=== PATIENT | female | born 1935 ===

== ENCOUNTER 2017-03-24 08:08 | Inpatient (IN) | payer OTHER ==
[2017-03-24 09:30] LABS: BASO % 0.5 % (0.0-2.0); EOS # 0.2 K/uL (0.0-0.7); EOS % 2.1 % (0.0-4.0); HEMATOCRIT 40.8 % (34.0-47.0); LYMPH # 2.5 K/uL (1.0-4.3); LYMPH % 27.8 % (20.0-40.0); MEAN CELL VOLUME 88.4 fl (81.0-99.0); MEAN CORPUSCULAR HEMOGLOBIN 30.5 pg (27.0-31.0); MEAN CORPUSCULAR HGB CONC 34.5 g/dL (33.0-37.0); MEAN PLATELET VOLUME 9.1 fl (7.2-11.7); MONO # 0.8 K/uL (0.0-0.8); MONO % 9.5 % (0.0-10.0); NEUT # 5.4 K/uL (1.8-7.0); NEUT % 60.1 % (50.0-75.0); NRBC % 0.1 % (0.0-0.0); RED CELL DISTRIBUTION WIDTH 14.5 % (11.5-14.5); WHITE BLOOD COUNT 8.9 K/uL (4.8-10.8)
[2017-03-24 09:40] LABS: ALB/GLOB RATIO 1.4 (1.0-2.1); ALKALINE PHOSPHATASE 91 U/L (38-126); ALT/SGPT 50 U/L (9-52); AST/SGOT 44 U/L (14-36); BILIRUBIN,TOTAL 0.9 mg/dl (0.2-1.3); BLOOD UREA NITROGEN 11 mg/dl (7-17); CALCIUM 9.5 mg/dL (8.4-10.2); CARBON DIOXIDE 24 mmol/L (22-30); CHLORIDE 101 mmol/L (98-107); GFR AFRICAN-AMERICAN > 60; GLUCOSE,RANDOM 104 mg/dL (65-105); POTASSIUM 3.3 MMOL/L (3.6-5.0); SODIUM 138 mmol/l (132-148); TOTAL PROTEIN 7.1 G/DL (6.3-8.2)
[2017-03-24] MEDS ORDERED: Potassium Chloride 20 mEq ER Tab PO ONE ×2 (09:46→11:46)
--- NOTE | 2017-03-24 10:03 | ED PDOC ---
Lower Extremity Pain/Injury Time Seen by Provider: 03/24/17 08:35 Chief Complaint (Nursing): Lower Extremity Problem/Injury Chief Complaint (Provider): Lower Extremity Problem/Injury History Per: Patient History/Exam Limitations: no limitations Onset/Duration Of Symptoms: Hrs Current Symptoms Are (Timing): Still Present Severity: Mild Additional Complaint(s): Patient is a 81 year old female who presents to ED from home for left lower back pain for 1 days. Patient also notes left buttock and left hip pain, hip pain is noted to radiates into her abdomen. Denies nausea, vomiting, diarrhea or fever. Pain is worse with lifting left leg, ambulatory at home with a cane. PMD: Dr. Mcghee Past Medical History Reviewed: Historical Data, Nursing Documentation, Vital Signs - Medical History PMH: Alzheimer's Disease, HTN, Hypercholesterolemia, Hyperlipidemia, Hypothyroidism, Osteoporosis - Surgical History Surgical History: No Surg Hx - Family History Family History: States: Unknown Family Hx - Living Arrangements Living Arrangements: With Family - Home Medications Home Medications: Ambulatory Orders Medication Instructions Recorded Donepezil [Aricept] 10 mg PO DAILY 03/24/17 Levothyroxine Sodium [Synthroid] 88 mcg PO DAILY 03/24/17 Pravastatin Sodium [Pravachol] 40 mg PO HS 03/24/17 Sucralfate [Carafate Tab] 1 gm PO TID 03/24/17 amLODIPine [Norvasc] 2.5 mg PO DAILY 03/24/17 - Allergies Allergies/Adverse Reactions: Allergies Allergy/AdvReac Type Severity Reaction Status Date / Time No Known Allergies Allergy Verified 12/05/16 23:05 Review of Systems ROS Statement: Except As Marked, All Systems Reviewed And Found Negative Constitutional: Negative for: Fever Respiratory: Negative for: Shortness of Breath Gastrointestinal: Positive for: Abdominal Pain. Negative for: Nausea, Vomiting Musculoskeletal: Positive for: Back Pain, Leg Pain Skin: Negative for: Rash Neurological: Positive for: Numbness Physical Exam - Reviewed Nursing Documentation Reviewed: Yes Vital Signs Reviewed: Yes - Physical Exam Appears: Positive for: Non-toxic, Uncomfortable Skin: Positive for: Normal Color, Warm Eye Exam: Positive for: Normal appearance Neck: Positive for: Normal, Painless ROM Cardiovascular/Chest: Positive for: Regular Rate, Rhythm. Negative for: Murmur Respiratory: Positive for: Normal Breath Sounds. Negative for: Respiratory Distress Gastrointestinal/Abdominal: Positive for: Soft, Tenderness (LLQ). Negative for : Distended, Guarding, Rebound Back: Positive for: Normal Inspection, Other (Left lower back, (+) trigger point tenderness ) Extremity: Positive for: Normal ROM. Negative for: Tenderness, Deformity Neurologic/Psych: Positive for: Alert, Oriented. Negative for: Motor/Sensory Deficits - Laboratory Results Result Diagrams: 03/24/17 09:23 03/24/17 09:23 Medical Decision Making Medical Decision Making: Time: 0900 Initial impression: Atraumatic Hip pain r/o arthritis, pathological fracture, sciatica. Abdominal pain r/o diverticulitis, abdominal CA Initial plan: -- CT-abdomen, lower extremity -- CMP -- CBC -- Toradol and Morpgine Time: 0945 Lab work reviewed: Potassium low Plan: -- Potassium Choloride 20 meq PO Time: 1155 CT-abdomen Impression: Mild pericholecystic inflammatory change/induration. No calcified gallstones. Consider correlation with abdominal ultrasound. Fatty infilitration of the liver. Small hiatral hernia. Sigmoid diverticulosis. CT-Lower extremities Impression: No acute fracutre. Osteoarthritis of left hip Scribe Attestation: Documented by Shanae Landon acting as a scribe for Willie Austin MD MD Scribe Attestation: All medical record entries made by the Scribe were at my direction and personally dictated by me. I have reviewed the chart and agree that the record accurately reflects my personal performance of the history, physical exam, medical decision making, and the department course for this patient. I have also personally directed, reviewed, and agree with the discharge instructions and disposition. Disposition - Clinical Impression Clinical Impression: Hip pain, left, Abdominal pain - Patient ED Disposition Is Patient to be Admitted: Yes Discussed With : Derrick Fuentes Doctor Will See Patient In The: Hospital Counseled Patient/Family Regarding: Studies Performed, Diagnosis - Disposition Disposition Time: 12:00 Condition: FAIR - Pt Status Changed To: Hospital Disposition Of: Inpatient - Admit Certification Admit to Inpatient:: After my assessment, the patient will require hospitalization for at least two midnights. This is because of the severity of symptoms shown, intensity of services needed, and/or the medical risk in this patient being treated as an outpatient. - POA Present On Arrival: None
--- NOTE | 2017-03-24 11:37 | CT ---
PROCEDURE: CT Abdomen and Pelvis without intravenous contrast HISTORY: abdominal pain COMPARISON: None. TECHNIQUE: Without contrast.. Contrast Dose: 0 Radiation dose: Total exam DLP = 859.55 mGy-cm. This CT exam was performed using one or more of the following dose reduction techniques: Automated exposure control, adjustment of the mA and/or kV according to patient size, and/or use of iterative reconstruction technique. FINDINGS: LOWER THORAX: Small hiatal hernia. No infiltrate. LIVER: Diffuse fatty infiltration. No mass. Smooth contour. No biliary dilatation. GALLBLADDER AND BILE DUCTS: No calcified gallstones. Questionable mild pericholecystic inflammatory change/induration. Consider correlation with abdominal/right upper quadrant ultrasound examination. No pericholecystic fluid. PANCREAS: Unremarkable. No gross lesion or ductal dilatation. SPLEEN: Unremarkable. ADRENALS: Unremarkable. No mass. KIDNEYS AND URETERS: Bilobed right lower pole pedunculated cyst, 3.9 x 2.5 cm. No interval change. Left upper pole cyst, 1.3 cm. No hydronephrosis. No calculus. VASCULATURE: Unremarkable. No aortic aneurysm. BOWEL: No bowel obstruction. 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 Seen on series 3, image 73 and is series 601, image 50. This measures approximately 1.5 cm in greatest dimension. Sigmoid diverticulosis without evidence of diverticulitis. Curvilinear calcifications seen along the wall of the gastric cardia, possibly calcified old suture material. Please correlate. APPENDIX: Unremarkable. Normal appendix. PERITONEUM: Unremarkable. No free fluid. No free air. LYMPH NODES: Unremarkable. No enlarged lymph nodes. BLADDER: Unremarkable. REPRODUCTIVE: Normal uterus BONES: Mild thoracolumbar levoscoliosis. Multilevel degenerative disc disease. No fracture. OTHER FINDINGS: None. IMPRESSION: Mild pericholecystic inflammatory change/induration. No calcified gallstones. Consider correlation with abdominal ultrasound. Fatty infiltration of the liver. Small hiatal hernia. Sigmoid diverticulosis. Additional minor findings as above.
--- NOTE | 2017-03-24 11:39 | CT ---
PROCEDURE: CT left hip HISTORY: left hip pain COMPARISON: Not available TECHNIQUE: 2.5 mm contiguous axial sections were acquired through the left hip. Sagittal and coronal images were reformatted from the axial scan. FINDINGS: There is no evidence of fracture. There is superior osteoarthritis of the left hip. The joint space is narrowed. There are subchondral cysts of the superior acetabulum. There are no articular erosions. The femoral head maintains its normal contour. There is no significant soft tissue abnormality seen about the hip. IMPRESSION: No acute fracture. Osteoarthritis of left hip.
[2017-03-24] MEDS: Pravastatin Sodium 40 MG TAB PO SCH (22:05)
[2017-03-24] MEDS ORDERED: Oxycodone/Acetaminophen 5/325 mg Tab PO PRN (22:12)
[2017-03-24] MEDS: Oxycodone/Acetaminophen 5/325 mg Tab PO PRN (22:20)
[2017-03-25] MEDS: Levothyroxine 88 MCG TAB PO SCH (05:57)
[2017-03-25] MEDS ORDERED: Levothyroxine 88 MCG TAB PO SCH (09:00)
[2017-03-25] MEDS: Enoxaparin 40 mg Syringe SC SCH (09:15)
[2017-03-25] MEDS: Oxycodone/Acetaminophen 5/325 mg Tab PO PRN (09:19)
--- NOTE | 2017-03-25 12:50 | CP.PCM.HP ---
<Mona Orourke - Last Filed: 03/26/17 12:32> History of Present Illness - History of Present Illness History of Present Illness: 81yo F with PMHx Alzheimer's Disease, HTN, Hypercholesterolemia, Hyperlipidemia , Hypothyroidism, Osteoporosis admitted for intractable left hip pain. Evaluated with attending. Left hip pain x2 days, no trauma/fall, radiation to abd. PMHx: as above FHx: NC SHx: Denies Allergies: NKDA Present on Admission - Present on Admission Any Indicators Present on Admission: No Review of Systems - Constitutional Constitutional: absent: Chills, Fever - Cardiovascular Cardiovascular: absent: Chest Pain - Respiratory Respiratory: absent: Dyspnea - Gastrointestinal Gastrointestinal: absent: Abdominal Pain, Diarrhea, Nausea, Vomiting - Genitourinary Genitourinary: absent: Dysuria, Hematuria - Musculoskeletal Musculoskeletal: Other (hip pain) - Neurological Neurological: absent: Headaches Past Patient History - Past Social History Smoking Status: Never Smoked - CARDIAC Hx Hypercholesterolemia: Yes Hx Hypertension: Yes - NEUROLOGICAL Hx Alzheimer's Disease: Yes - ENDOCRINE/METABOLIC Hx Hypothyroidism: Yes - MUSCULOSKELETAL/RHEUMATOLOGICAL Hx Falls: Yes Hx Osteoporosis: Yes - GASTROINTESTINAL Hx Constipation: Yes Hx Gastroesophageal Reflux: Yes Hx Ulcer: Yes - PSYCHIATRIC Hx Substance Use: No - SURGICAL HISTORY Hx Herniorrhaphy: Yes Other/Comment: Removal of stomach tumor - ANESTHESIA Hx Anesthesia: Yes Hx Anesthesia Reactions: No Hx Malignant Hyperthermia: No Has any member of the family had a problem w/ anesthesia?: No Meds Allergies/Adverse Reactions: Allergies Allergy/AdvReac Type Severity Reaction Status Date / Time No Known Allergies Allergy Verified 12/05/16 23:05 Physical Exam - Constitutional Appears: Non-toxic, No Acute Distress - Head Exam Head Exam: NORMAL INSPECTION - Eye Exam Eye Exam: Normal appearance - ENT Exam ENT Exam: Mucous Membranes Moist - Neck Exam Neck exam: Positive for: Normal Inspection - Respiratory Exam Respiratory Exam: Clear to Auscultation Bilateral - Cardiovascular Exam Cardiovascular Exam: Irregular Rhythm - GI/Abdominal Exam GI & Abdominal Exam: Normal Bowel Sounds, Soft - Extremities Exam Extremities exam: Positive for: normal inspection - Neurological Exam Neurological exam: Alert, CN II-XII Intact, Oriented x3 Additional comments: motor/sensation grossly intact TTP right hip neg log roll ROM limited d/t pain - Skin Skin Exam: Dry, Warm Results - Vital Signs Recent Vital Signs: Last Vital Signs Temp 98 F 03/25/17 08:08 Pulse 65 03/25/17 08:08 Resp 20 03/25/17 08:08 BP 112/67 03/25/17 09:15 Pulse Ox 94 L 03/25/17 08:08 - Labs Result Diagrams: 03/24/17 09:23 03/24/17 09:23 Labs: Laboratory Results - last 24 hr 03/25/17 03/25/17 08:30 08:30 ESR 28 TSH 3rd Generation 3.87 Assessment & Plan - Assessment and Plan (Free Text) Assessment: 81yo F with PMHx Alzheimer's Disease, HTN, Hypercholesterolemia, Hyperlipidemia , Hypothyroidism, Osteoporosis admitted for intractable left hip pain. left hip pain -CT abd/pelvis: fatty liver, sigmoid diverticulosis -CT left hip: no acute pathology, OA -ortho on board, appreciate input -XR b/l hip, pending final read -pain control -PT/OT Alzheimer's Disease -c/w home med HTN -c/w home med Hyperlipidemia -c/w home med Hypothyroidism -c/w home med DVT ppx -lovenox Decision To Admit - Pt Status Changed To: Hospital Disposition Of: Inpatient - Admit Certification Admit to Inpatient:: After my assessment, the patient will require hospitalization for at least two midnights. This is because of the severity of symptoms shown, intensity of services needed, and/or the medical risk in this patient being treated as an outpatient. - . Bed Request Type: Med/Surg Admitting Physician: Derrick Fuentes <Derrick Fuentes Last Filed: 03/27/17 15:56> Results - Vital Signs Recent Vital Signs: Last Vital Signs Temp 98 F 03/26/17 08:55 Pulse 76 03/26/17 08:55 Resp 20 03/26/17 08:55 BP 113/69 03/26/17 08:57 Pulse Ox 93 L 03/26/17 08:55 - Labs Result Diagrams: 03/24/17 09:23 03/26/17 14:56 Assessment & Plan - Assessment and Plan (Free Text) Assessment: Patient seen and examined with residents in rounds. Case, condition, investigative work up and plan discussed in detail. Agree with residents progress note. Plan: As ordered. (Derrick Fuentes MD)
--- NOTE | 2017-03-25 13:47 | CP.PCM.CON ---
History of Present Illness - History of Present Illness History of Present Illness: Orthopedic consult note Patient is a 81 year old female patient with PMHx of HTN, Hyperlipidemia, Hypothyroidism, dementia was seen at bedside this afternoon with attending Dr. Harris concerning pain to Left hip. Patient states that she has pain to lower back as well as Left hip which started a few days ago. Patient states that she had the back pain for a long time, more than a couple years. She denies of any trauma to the area, and is able to ambulate with cane. Patient deneis of any N/V /F/C or SOB today. Radiographic findings were discussed with the patient in detail and she was advised to follow up with Dr. Harris as an outpatient. Past Patient History - Past Social History Smoking Status: Never Smoked - CARDIAC Hx Hypercholesterolemia: Yes Hx Hypertension: Yes - NEUROLOGICAL Hx Alzheimer's Disease: Yes - ENDOCRINE/METABOLIC Hx Hypothyroidism: Yes - MUSCULOSKELETAL/RHEUMATOLOGICAL Hx Falls: Yes Hx Osteoporosis: Yes - GASTROINTESTINAL Hx Constipation: Yes Hx Gastroesophageal Reflux: Yes Hx Ulcer: Yes - PSYCHIATRIC Hx Substance Use: No - SURGICAL HISTORY Hx Herniorrhaphy: Yes Other/Comment: Removal of stomach tumor - ANESTHESIA Hx Anesthesia: Yes Hx Anesthesia Reactions: No Hx Malignant Hyperthermia: No Has any member of the family had a problem w/ anesthesia?: No Meds Allergies/Adverse Reactions: Allergies Allergy/AdvReac Type Severity Reaction Status Date / Time No Known Allergies Allergy Verified 12/05/16 23:05 - Medications Medications: Current Medications Amlodipine Besylate (Norvasc) 2.5 mg PO DAILY [facility] Last Admin: 03/25/17 09:15 Dose: 2.5 mg Donepezil HCl (Aricept) 10 mg PO DAILY [facility] Last Admin: 03/25/17 09:15 Dose: 10 mg Enoxaparin Sodium (Lovenox) 40 mg SC DAILY [facility] PRN Reason: Protocol Last Admin: 03/25/17 09:15 Dose: 40 mg Levothyroxine Sodium (Synthroid) 88 mcg PO DAILY@0600 [facility] Last Admin: 03/25/17 05:57 Dose: 88 mcg Oxycodone/Acetaminophen (Percocet 5/325 Mg Tab) 1 tab PO Q4 PRN PRN Reason: Pain, moderate (4-7) Stop: 03/27/17 22:12 Last Admin: 03/25/17 09:19 Dose: 1 tab Oxycodone/Acetaminophen (Percocet 5/325 Mg Tab) 2 tab PO Q4 PRN PRN Reason: Pain, severe (8-10) Stop: 03/27/17 22:13 Pravastatin Sodium (Pravachol) 40 mg PO HS [facility] Last Admin: 03/24/17 22:05 Dose: 40 mg Sucralfate (Carafate Tab) 1 gm PO TID [facility] Last Admin: 03/25/17 13:16 Dose: 1 gm Physical Exam - Constitutional Appears: Well, Non-toxic, No Acute Distress - Head Exam Head Exam: ATRAUMATIC - Extremities Exam Additional comments: Left hip exam reveals no open wound, no ecchymosis, no erythema, no drainage, no clinical signs of acute infection. Pain on palpation is noted to the lateral aspect of Left hip. Reduced ROM to left hip flexion noted secondary to guarding. - Neurological Exam Neurological exam: Alert, Oriented x3 - Psychiatric Exam Psychiatric exam: Normal Affect, Normal Mood - Skin Skin Exam: Normal Color, Warm Results - Vital Signs Recent Vital Signs: Last Vital Signs Temp 98 F 03/25/17 08:08 Pulse 65 03/25/17 08:08 Resp 20 03/25/17 08:08 BP 112/67 03/25/17 09:15 Pulse Ox 94 L 03/25/17 08:08 - Labs Result Diagrams: 03/24/17 09:23 03/24/17 09:23 Labs: Laboratory Results - last 24 hr 03/25/17 03/25/17 08:30 08:30 ESR 28 TSH 3rd Generation 3.87 Assessment & Plan - Assessment and Plan (Free Text) Assessment: 81 year old female patient presents with degenerative osteoarthritis to bilateral hip joints accompanied by pain Plan: Patient was seen, evaluated and treated with all questions and concerns addressed labs and vitals were reviewed Xrays were reviewed, discussed with the patient; No signs consistent with acute fracture is noted Patient can be full-weight bearing as tolerated with cane as per Dr. Harris Patient is to follow up with Dr. Harris as an out patient upon discharge
--- NOTE | 2017-03-25 15:08 | RAD ---
PROCEDURE: Abdomen HISTORY: Left hip pain. No antecedent history of trauma provided. COMPARISON: March 24, 2017. MRI.L. Hip TECHNIQUE: Standard protocol for this study/examination. FINDINGS: There are no osseous abnormalities to suggest fracture. The pelvic ring is intact. Preserved femoral-acetabular relationship. Negative study for protrusio, subluxation or dislocation. Degenerative changes: Bilaterally symmetric moderate degenerative change. IMPRESSION: No acute findings related to/accounting for the clinical presentation.
[2017-03-25] MEDS: Pravastatin Sodium 40 MG TAB PO SCH (22:25)
[2017-03-26 01:56] VITALS: BP 113/69; PULSE 76
[2017-03-26] MEDS: Levothyroxine 88 MCG TAB PO SCH (05:58)
[2017-03-26 08:56] VITALS: RESP 20; TEMP 98; O2SAT 93
[2017-03-26] MEDS: Enoxaparin 40 mg Syringe SC SCH (08:57)
--- NOTE | 2017-03-26 12:25 | CP.PCM.DIS ---
<Conor Orourkejackelyn - Last Filed: 03/27/17 08:35> Provider - Provider Date of Admission: 03/24/17 12:06 Attending physician: Derrick Fuentes MD Time Spent in preparation of Discharge (in minutes): 20 Hospital Course - Lab Results Lab Results: Most Recent Lab Values WBC 8.9 K/uL (4.8-10.8) 03/24/17 09: RBC 4.62 Mil/uL (3.80-5.20) 03/24/17 09: Hgb 14.1 g/dL (12.0-16.0) 03/24/17 09: Hct 40.8 % (34.0-47.0) 03/24/17: MCV 88.4 fl (81.0-99.0) 03/24/17: MCH 30.5 pg (27.0-31.0) 03/24/17: MCHC 34.5 g/dL (33.0-37.0) 03/24/17: RDW 14.5 % (11.5-14.5) 03/24/17 09: Plt Count 261 K/uL (130-400) 03/24/17 09: MPV 9.1 fl (7.2-11.7) 03/24/17 09: Neut % (Auto) 60.1 % (50.0-75.0) 03/24/17 09: Lymph % (Auto) 27.8 % (20.0-40.0) 03/24/17: Orange % (Auto) 9.5 % (0.0-10.0) 03/24/17 09: Eos % (Auto) 2.1 % (0.0-4.0) 03/24/17 09: Baso % (Auto) 0.5 % (0.0-2.0) 03/24/17: Neut # 5.4 K/uL (1.8-7.0) 03/24/17 09: Lymph # 2.5 K/uL (1.0-4.3) 03/24/17 09: Orange # 0.8 K/uL (0.0-0.8) 03/24/17 09:23 Eos # 0.2 K/uL (0.0-0.7) 03/24/17 09:23 Baso # 0.0 K/uL (0.0-0.2) 03/24/17 09:23 ESR 28 mm/hr (0-30) 03/25/17 08:30 Sodium 138 mmol/l (132-148) 03/24/17 09:23 Potassium 3.3 MMOL/L (3.6-5.0) L 03/24/17 09:23 Chloride 101 mmol/L (98-107) 03/24/17 09:23 Carbon Dioxide 24 mmol/L (22-30) 03/24/17 09:23 Anion Gap 16 (10-20) 03/24/17 09:23 BUN 11 mg/dl (7-17) 03/24/17 09:23 Creatinine 0.7 mg/dL (0.7-1.2) 03/24/17 09:23 Est GFR ( Amer) > 60 03/24/17 09:23 Est GFR (Non-Af Amer) > 60 03/24/17 09:23 Random Glucose 104 mg/dL (65-105) 03/24/17 09:23 Calcium 9.5 mg/dL (8.4-10.2) 03/24/17 09:23 Total Bilirubin 0.9 mg/dl (0.2-1.3) 03/24/17 09:23 AST 44 U/L (14-36) H 03/24/17 09:23 ALT 50 U/L (9-52) 03/24/17 09:23 Alkaline Phosphatase 91 U/L (38-126) 03/24/17 09:23 Total Protein 7.1 G/DL (6.3-8.2) 03/24/17 09:23 Albumin 4.2 g/dL (3.5-5.0) 03/24/17 09:23 Globulin 2.9 gm/dL (2.2-3.9) 03/24/17 09:23 Albumin/Globulin Ratio 1.4 (1.0-2.1) 03/24/17 09:23 TSH 3rd Generation 3.87 mIU/ML (0.46-4.68) 03/25/17 08:30 Rheum Arthritis Panel Negative (NEGATIVE) 03/25/17 08:30 - Hospital Course Hospital Course: 81yo F with PMHx Alzheimer's Disease, HTN, Hypercholesterolemia, Hyperlipidemia , Hypothyroidism, Osteoporosis admitted for intractable left hip pain. CT abd/ pelvis showed fatty liver and sigmoid diverticulosis. CT left hip showed no acute pathology and OA. XR b/l hip showed no fracture. C/s ortho Dr. Harris with recommendation for WBAT as no acute fx found and likely OA. Pt d/c to home as pt insurance didn't authorize [facility] for rehab. Discharge Exam - Head Exam Head Exam: ATRAUMATIC - Eye Exam Eye Exam: Normal appearance - ENT Exam ENT Exam: Mucous Membranes Moist - Neck Exam Neck exam: Normal Inspection - Respiratory Exam Respiratory Exam: NORMAL BREATHING PATTERN - Cardiovascular Exam Cardiovascular Exam: REGULAR RHYTHM - GI/Abdominal Exam GI & Abdominal Exam: Normal Bowel Sounds, Soft - Extremities Exam Extremities exam: normal inspection - Back Exam Back exam: NORMAL INSPECTION - Neurological Exam Neurological exam: Alert, Oriented x3 - Skin Skin Exam: Dry, Warm - Additional Findings Additional findings: TTP left hip, limited active ROM d/t pain Discharge Plan - Follow Up Plan Condition: FAIR Disposition: HOME/ ROUTINE Instructions: Oxycodone/Acetaminophen (By mouth) Additional Instructions: Follow up with primary medical doctor in 1 week. return to ER for uncontrolled pain. No strenous activity <Derrick Fuentes - Last Filed: 03/27/17 15:56> Provider - Provider Date of Admission: 03/24/17 12:06 Attending physician: Derrick Fuentes MD Hospital Course - Lab Results Lab Results: Most Recent Lab Values WBC 8.9 K/uL (4.8-10.8) 03/24/17 09:23 RBC 4.62 Mil/uL (3.80-5.20) 03/24/17 09:23 Hgb 14.1 g/dL (12.0-16.0) 03/24/17 09:23 Hct 40.8 % (34.0-47.0) 03/24/17 09:23 MCV 88.4 fl (81.0-99.0) 03/24/17 09:23 MCH 30.5 pg (27.0-31.0) 03/24/17 09:23 MCHC 34.5 g/dL (33.0-37.0) 03/24/17 09:23 RDW 14.5 % (11.5-14.5) 03/24/17 09:23 Plt Count 261 K/uL (130-400) 03/24/17 09:23 MPV 9.1 fl (7.2-11.7) 03/24/17 09:23 Neut % (Auto) 60.1 % (50.0-75.0) 03/24/17 09: Lymph % (Auto) 27.8 % (20.0-40.0) 03/24/17 09:23 Orange % (Auto) 9.5 % (0.0-10.0) 03/24/17 09: Eos % (Auto) 2.1 % (0.0-4.0) 03/24/17 09: Baso % (Auto) 0.5 % (0.0-2.0) 03/24/17 09: Neut # 5.4 K/uL (1.8-7.0) 03/24/17 09: Lymph # 2.5 K/uL (1.0-4.3) 03/24/17 09:23 Orange # 0.8 K/uL (0.0-0.8) 03/24/17 09: Eos # 0.2 K/uL (0.0-0.7) 03/24/17 09: Baso # 0.0 K/uL (0.0-0.2) 03/24/17 09: ESR 28 mm/hr (0-30) 03/25/17 08:30 Sodium 138 mmol/l (132-148) 03/24/17 09:23 Potassium 3.3 MMOL/L (3.6-5.0) L 03/26/17 14:56 Chloride 101 mmol/L (98-107) 03/24/17 09:23 Carbon Dioxide 24 mmol/L (22-30) 03/24/17 09:23 Anion Gap 16 (10-20) 03/24/17 09:23 BUN 11 mg/dl (7-17) 03/24/17 09:23 Creatinine 0.7 mg/dL (0.7-1.2) 03/24/17 09:23 Est GFR ( Amer) > 60 03/24/17 09:23 Est GFR (Non-Af Amer) > 60 03/24/17 09:23 Random Glucose 104 mg/dL (65-105) 03/24/17 09:23 Calcium 9.5 mg/dL (8.4-10.2) 03/24/17 09:23 Total Bilirubin 0.9 mg/dl (0.2-1.3) 03/24/17 09:23 AST 44 U/L (14-36) H 03/24/17 09:23 ALT 50 U/L (9-52) 03/24/17 09:23 Alkaline Phosphatase 91 U/L (38-126) 03/24/17 09:23 Total Protein 7.1 G/DL (6.3-8.2) 03/24/17 09:23 Albumin 4.2 g/dL (3.5-5.0) 03/24/17 09:23 Globulin 2.9 gm/dL (2.2-3.9) 03/24/17 09:23 Albumin/Globulin Ratio 1.4 (1.0-2.1) 03/24/17 09:23 TSH 3rd Generation 3.87 mIU/ML (0.46-4.68) 03/25/17 08:30 Rheum Arthritis Panel Negative (NEGATIVE) 03/25/17 08:30 ZENA Screen Negative (Negative) 03/25/17 08:30
== END 2017-03-26 16:17 | disposition home or self-care (01) | DRG 245 ==
LOC: H.ER 08:08 → H.ERHOLD 12:06 → H.MEDSURG1 14:43
PROVIDERS: ADMIT Internal Medicine; ATTEND Internal Medicine
DX: M16.0 Bilateral primary osteoarthritis of hip (principal); G30.9 Alzheimer's disease, unspecified; F02.80 Dementia in other diseases classified elsewhere, unspecified severity, without behavioral disturbance, psychotic disturbance, mood disturbance, and anxiety; I10 Essential (primary) hypertension; E03.9 Hypothyroidism, unspecified; E78.5 Hyperlipidemia, unspecified; E78.00 Pure hypercholesterolemia, unspecified; M81.0 Age-related osteoporosis without current pathological fracture

== ENCOUNTER 2017-07-20 22:16 | Emergency (ER) | payer OTHER ==
[2017-07-20 22:32] VITALS: BP 135/82; PULSE 83; RESP 16; O2SAT 100
[2017-07-20] MEDS ORDERED: Sodium Chloride 0.9% 500 ML IV STA (22:54)
[2017-07-20 23:06] VITALS: TEMP 98.7
[2017-07-20 23:32] LABS: VENOUS BLOOD GAS BASE EXCESS 3.2 mmol/L (0.0-2.0); VENOUS BLOOD GAS MODE ROOM AIR; VENOUS BLOOD GAS PCO2 45 mmHg (40-60); VENOUS BLOOD PH 7.41 (7.32-7.43)
[2017-07-20 23:39] LABS: BASO # 0.1 K/uL (0.0-0.2); BASO % 0.5 % (0.0-2.0); EOS # 0.2 K/uL (0.0-0.7); HEMATOCRIT 40.9 % (34.0-47.0); LYMPH # 1.5 K/uL (1.0-4.3); LYMPH % 12.7 % (20.0-40.0); MEAN CELL VOLUME 90.5 fl (81.0-99.0); MEAN CORPUSCULAR HGB CONC 33.1 g/dL (33.0-37.0); MEAN PLATELET VOLUME 8.8 fl (7.2-11.7); MONO # 0.3 K/uL (0.0-0.8); MONO % 2.5 % (0.0-10.0); NEUT # 9.6 K/uL (1.8-7.0); NEUT % 82.3 % (50.0-75.0); RED CELL DISTRIBUTION WIDTH 13.9 % (11.5-14.5); WHITE BLOOD COUNT 11.6 K/uL (4.8-10.8)
--- NOTE | 2017-07-20 23:47 | ED PDOC ---
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 (+) head pain, bilateral arm pain, bilateral leg pain, subjective fever, chills, and frequency/dysuria x2 weeks. (-) nausea, vomiting, diarrhea, upper respiratory symptoms. Patient states that she had felt fine all day up until x1 hour ago. PCP: Onofre jackson [place] Past Medical History Reviewed: Historical Data, Nursing Documentation, Vital Signs Vital Signs: Last Vital Signs Temp 98.7 F 07/20/17 23:06 Pulse 83 07/20/17 22:29 Resp 16 07/20/17 22:29 BP 135/82 07/20/17 22:29 Pulse Ox 100 07/21/17 06:01 - Medical History PMH: Alzheimer's Disease, HTN, Hypercholesterolemia, Hyperlipidemia, Hypothyroidism, Osteoporosis - Surgical History Surgical History: Hernia Repair Other surgeries: fatty tumor removal - Family History Family History: States: No Known Family Hx - Social History Current smoker - smoking cessation education provided: No Ex-Smoker (has not smoked in the last 12 months): No Alcohol: None Drugs: Denies - Home Medications Home Medications: Ambulatory Orders Medication Instructions Recorded Donepezil [Aricept] 10 mg PO HS tab 07/24/17 Enoxaparin [Lovenox] 40 mg SC DAILY syr 07/24/17 Levothyroxine [Synthroid] 88 mcg PO DAILY@0630 tab 07/24/17 Pravastatin Sodium [Pravachol] 40 mg PO HS tab 07/24/17 Sucralfate [Carafate Tab] 1 gm PO TID tab 07/24/17 amLODIPine [Norvasc] 2.5 mg PO DAILY tab 07/24/17 cefTRIAXone [Rocephin] 2 gm IV DAILY #7 vial 07/24/17 - Allergies Allergies/Adverse Reactions: Allergies Allergy/AdvReac Type Severity Reaction Status Date / Time No Known Allergies Allergy Verified 09/09/17 14:36 Review of Systems ROS Statement: Except As Marked, All Systems Reviewed And Found Negative Constitutional: Positive for: Fever (subjective), Chills Respiratory: Negative for: Cough, Shortness of Breath Gastrointestinal: Negative for: Nausea, Vomiting, Diarrhea Genitourinary Female: Positive for: Dysuria, Frequency Musculoskeletal: Positive for: Arm Pain (bilateral), Back Pain, Leg Pain ( bilateral), Other ((+) head pain) Physical Exam - Reviewed Nursing Documentation Reviewed: Yes Vital Signs Reviewed: Yes - Physical Exam Appears: Positive for: Uncomfortable, In Acute Distress Head Exam: Positive for: ATRAUMATIC, NORMOCEPHALIC Skin: Positive for: Warm, Dry Eye Exam: Positive for: EOMI, PERRL ENT: Negative for: Pharyngeal Erythema, Tonsillar Exudate Neck: Positive for: Painless ROM, Supple Cardiovascular/Chest: Positive for: Regular Rate, Rhythm, Chest Non Tender. Negative for: Murmur Respiratory: Positive for: Normal Breath Sounds. Negative for: Wheezing, Respiratory Distress Gastrointestinal/Abdominal: Positive for: Soft, Tenderness (suprapubic). Negative for: Mass, Distended, Guarding, Rebound Back: Positive for: L CVA Tenderness, R CVA Tenderness, Vertebral Tenderness Extremity: Positive for: Normal ROM, Tenderness, Other (trace bilateral leg) Lymphatic: Negative for: Adenopathy Neurologic/Psych: Positive for: Alert, Motor/Sensory Deficits, Mood/Affect ( anxious affect) - Laboratory Results Result Diagrams: 07/20/17 23:36 07/20/17 23:36 - ECG O2 Sat by Pulse Oximetry: 100 (RA) Pulse Ox Interpretation: Normal Medical Decision Making Medical Decision Makin Initial impression: body aches DDx: viral syndrome, UTI, dehydration, sepsis, electrolyte abnormality, PNA Initial plan: * T&S * VBG Shock * EKG * Labs * Magnesium * Phosphorus * Trop I * PTT/PT * CXR * NS IV * Toradol 15mg IV * Acetaminophen 975mg PO * BCx * UCx * Rapid strep * UA * Re-eval On reeval pt reports persistent back pain. Urine c/w UTI. CT abd/pel ordered for pyelo v renal stone. Scribe Attestation: Documented by Serena Varela acting as a scribe for Suzi Goldberg MD. MD Scribe Attestation: All medical record entries made by the Violeta were at my direction and personally dictated by me. I have reviewed the chart and agree that the record accurately reflects my personal performance of the history, physical exam, medical decision making, and the department course for this patient. I have also personally directed, reviewed, and agree with the discharge instructions and disposition. Disposition - Clinical Impression Clinical Impression: UTI (urinary tract infection) - Disposition Disposition: Transfer of Care Disposition Time: 00:00 Condition: STABLE Additional Instructions: follow up with your primary doctor in 1-2 days return to the ED with any worsening or concerning symptoms Patient Signed Over To: Juan Kim Y Handoff Comments: Pending ER workup, reassesment and final ER dispo
[2017-07-20 23:48] LABS: ALB/GLOB RATIO 1.3 (1.0-2.1); ALKALINE PHOSPHATASE 100 U/L (38-126); ALT/SGPT 58 U/L (9-52); AST/SGOT 58 U/L (14-36); BILIRUBIN,TOTAL 0.5 mg/dl (0.2-1.3); BLOOD UREA NITROGEN 17 mg/dl (7-17); CALCIUM 9.4 mg/dL (8.4-10.2); CARBON DIOXIDE 26 mmol/L (22-30); CHLORIDE 102 mmol/L (98-107); GFR AFRICAN-AMERICAN > 60; GLUCOSE,RANDOM 95 mg/dL (65-105); MAGNESIUM 2.2 MG/DL (1.6-2.3); POTASSIUM 3.5 MMOL/L (3.6-5.0); SODIUM 137 mmol/l (132-148); TOTAL PROTEIN 7.1 G/DL (6.3-8.2)
[2017-07-20 23:54] LABS: PARTIAL THROMBOPLASTIN TIME 30.9 Seconds (25.6-37.1)
[2017-07-20] MEDS ORDERED: Potassium Chloride 20 mEq ER Tab PO STA (23:57)
--- NOTE | 2017-07-21 00:10 | ED PDOC ---
- Laboratory Results Result Diagrams: 07/20/17 23:36 07/20/17 23:36 - ECG O2 Sat by Pulse Oximetry: 100 (RA) Medical Decision Making Medical Decision Makin Patient signed out to me from Dr. Goldberg CT and work up. 0030 CT FINDINGS Lower thorax: The bilateral lung bases are clear. ABDOMEN: Liver: No acute findings Gallbladder and bile ducts: The gallbladder is only minimally distended, without calcified stones. No intra-extrahepatic biliary ductal dilation. Pancreas: Limited evaluation secondary to the lack of intravenous contrast. Spleen: No acute findings. Adrenals: No acute findings. Kidneys and ureters: No obstructing stones. Mild bilateral pelvicaliectasis, without briana hydronephrosis. PELVIS: Bladder: No acute findings. Reproductive: No acute findings. Appendix: The appendix is of normal-caliber (series 3, image 103). ABDOMEN and PELVIS: Stomach and bowel: Duodenal lipoma again identified. Postoperative change in the stomach. Mural thickening within the sigmoid colon, with multiple diverticulum. No surrounding inflammation. Peritoneum: No acute findings. Lymph nodes: Limited evaluation without intravenous contrast. Vasculature: No aortic aneurysm. Calcified atherosclerotic disease. Bones: No acute fracture. 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 IMPRESSION: No obstructive uropathy. Multiple nonacute findings, as detailed above 0055 Upon re-evaluation, patient is feeling better. Patient is medically stable for discharge home. Instructions to follow up with findings form CT. advised pt and family to get results from medical records pt feels well, tolerated po Dx: UTI rx macrobid Scribe Attestation: Documented by Serena Varela acting as a scribe for Juan Kim MD. Scribe Attestation: All medical record entries made by the Scribe were at my direction and personally dictated by me. I have reviewed the chart and agree that the record accurately reflects my personal performance of the history, physical exam, medical decision making, and the department course for this patient. I have also personally directed, reviewed, and agree with the discharge instructions and disposition. Disposition Counseled Patient/Family Regarding: Studies Performed, Diagnosis, Need For Followup - Clinical Impression Clinical Impression: UTI (urinary tract infection) - POA Present On Arrival: None - Disposition Referrals: [facility] [Outside] [facility] [Outside] Disposition: Routine/Home Disposition Time: 00:30 Condition: IMPROVED Additional Instructions: follow up with your primary doctor in 1-2 days return to the ED with any worsening or concerning symptoms Prescriptions: Nitrofurantoin Macrocrystals [Macrobid] 100 mg PO BID #14 cap Instructions: Urinary Tract Infection in Women (ED) Forms: [employer] (Italian)
[2017-07-21 00:24] LABS: RBC URINE 9 /hpf (0-3); URINE BACTERIA RARE (<OCC); URINE BILIRUBIN NEGATIVE (NEGATIVE); URINE BLOOD SMALL (NEGATIVE); URINE COLOR YELLOW (YELLOW); URINE GLUCOSE (UA) NEG (Normal); URINE KETONE NEGATIVE (NEGATIVE); URINE LEUKOCYTE ESTERASE LARGE Leu/uL (Negative); URINE PROTEIN NEGATIVE (NEGATIVE); URINE UROBILINOGEN 0.2-1.0 mg/dL (0.2-1.0); WBC URINE 89 /hpf (0-5)
--- NOTE | 2017-07-21 00:30 | CT ---
EXAM: CT Abdomen and Pelvis Without Intravenous Contrast CLINICAL HISTORY: 82 years old, female; Pain; Abdominal pain; Flank; Other: Bilateral pain; Additional info: Bilateral flank pain TECHNIQUE: Axial computed tomography images of the abdomen and pelvis without intravenous contrast. All CT scans at this facility use one or more dose reduction techniques, viz.: automated exposure control; ma/kV adjustment per patient size (including targeted exams where dose is matched to indication; i.e. head); or iterative reconstruction technique. Coronal and sagittal reformatted images were created and reviewed. COMPARISON: CT - ABD PELVIS W/O PO OR IV CONT 03/24/2017 10:57:45 AM FINDINGS: Lower thorax: The bilateral lung bases are clear. ABDOMEN: Liver: No acute findings Gallbladder and bile ducts: The gallbladder is only minimally distended, without calcified stones. No intra-extrahepatic biliary ductal dilation. Pancreas: Limited evaluation secondary to the lack of intravenous contrast. Spleen: No acute findings. Adrenals: No acute findings. Kidneys and ureters: No obstructing stones. Mild bilateral pelvicaliectasis, without briana hydronephrosis. PELVIS: Bladder: No acute findings. Reproductive: No acute findings. Appendix: The appendix is of normal-caliber (series 3, image 103). ABDOMEN and PELVIS: Stomach and bowel: Duodenal lipoma again identified. Postoperative change in the stomach. Mural thickening within the sigmoid colon, with multiple diverticulum. No surrounding inflammation. Peritoneum: No acute findings. Lymph nodes: Limited evaluation without intravenous contrast. Vasculature: No aortic aneurysm. Calcified atherosclerotic disease. Bones: No acute fracture. 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 IMPRESSION: No obstructive uropathy. Multiple nonacute findings, as detailed above.
[2017-07-21] MEDS ORDERED: Potassium Chloride 20 mEq ER Tab PO ONE ×2 (00:41→00:53)
[2017-07-21] MEDS ORDERED: cefTRIAXone (Rocephin) 1 gm Inj ONE (00:42)
--- NOTE | 2017-07-21 07:48 | RAD ---
HISTORY: cp fever COMPARISON: Chest radiographs 11/01/2013. FINDINGS: LUNGS: No active pulmonary disease. PLEURA: No significant pleural effusion identified, no pneumothorax apparent. CARDIOVASCULAR: Normal. OSSEOUS STRUCTURES: No significant abnormalities. VISUALIZED UPPER ABDOMEN: Normal. OTHER FINDINGS: None. IMPRESSION: No acute infiltrates or pleural effusion. Examination appears stable in the interval.
--- NOTE | 2017-07-24 18:36 | CARD ---
APPROVED REPORT EKG Measurement Heart [id number] [place] [id number] <Conclusion> Normal sinus rhythm Left anterior fascicular block Abnormal ECG
== END 2017-07-21 02:28 | disposition home or self-care (01) ==
LOC: H.ER 22:16
DX: N39.0 Urinary tract infection, site not specified (principal); E78.00 Pure hypercholesterolemia, unspecified
CPT/HCPCS: 71010; 74176; 80053; 81003; 82803; 83735; 83880; 84100; 84484; 85025; 85610; 85730; 86850; 86900; 87040; 87070; 87086; 87181; 87430; 93005; 96365; 96375; 99284; J0696; J1885; J7040

== ENCOUNTER 2017-07-21 22:57 | Inpatient (IN) | payer OTHER ==
[2017-07-21] MEDS ORDERED: cefTRIAXone (Rocephin) 2 gm Inj IVPB STA (23:07)
--- NOTE | 2017-07-21 23:29 | ED PDOC ---
HPI: General Adult Time Seen by Provider: 07/21/17 23:15 Chief Complaint (Nursing): Fever Chief Complaint (Provider): FEVER History Per: Patient (82 Y/O FEMALE HERE WITH PERSISTENT FEVER/CHILLS/DYSURIA. SEEN YESTERDAY FOR THE SAME AND DIAGNOSED WITH UTI. HAD CT ABD/PELVIS NEGATIVE. D/C ON MACROBID. PATIENT WAS NOTED TO HAVE BLOOD CULTURE POSITIVE FOR GRAM NEG ORGANISM. NOTES FEVERS PERSISTENT TODAY. LAST TOOK TYLENOL AT 4PM ) Past Medical History Reviewed: Historical Data, Nursing Documentation, Vital Signs Vital Signs: Last Vital Signs Temp 100.5 F H 07/21/17 23:03 Pulse 101 H 07/21/17 23:03 Resp 18 07/21/17 23:03 BP 125/65 07/21/17 23:03 Pulse Ox 97 07/21/17 23:59 - Medical History PMH: Alzheimer's Disease, HTN, Hypercholesterolemia, Hyperlipidemia, Hypothyroidism, Osteoporosis - Surgical History Surgical History: Hernia Repair Other surgeries: SX FOR BLADDER TUMOR REMOVAL - Family History Family History: States: Unknown Family Hx - Home Medications Home Medications: Ambulatory Orders Medication Instructions Recorded Donepezil [Aricept] 10 mg PO DAILY 03/24/17 Levothyroxine Sodium [Synthroid] 88 mcg PO DAILY 03/24/17 Pravastatin Sodium [Pravachol] 40 mg PO HS 03/24/17 Sucralfate [Carafate Tab] 1 gm PO TID 03/24/17 amLODIPine [Norvasc] 2.5 mg PO DAILY 03/24/17 Nitrofurantoin Macrocrystals 100 mg PO BID #14 cap 07/21/17 [Macrobid] - Allergies Allergies/Adverse Reactions: Allergies Allergy/AdvReac Type Severity Reaction Status Date / Time No Known Allergies Allergy Verified 12/05/16 23:05 Review of Systems ROS Statement: Except As Marked, All Systems Reviewed And Found Negative Constitutional: Positive for: Fever Genitourinary Female: Positive for: Dysuria Physical Exam - Reviewed Nursing Documentation Reviewed: Yes Vital Signs Reviewed: Yes - Physical Exam Appears: Positive for: Well, Non-toxic, No Acute Distress Head Exam: Positive for: ATRAUMATIC, NORMAL INSPECTION, NORMOCEPHALIC Skin: Positive for: Normal Color, Warm, DRY Eye Exam: Positive for: EOMI, Normal appearance, PERRL ENT: Positive for: Normal ENT Inspection Neck: Positive for: Normal, Painless ROM Cardiovascular/Chest: Positive for: Regular Rate, Rhythm Respiratory: Positive for: CNT, Normal Breath Sounds Gastrointestinal/Abdominal: Positive for: Normal Exam, Bowel Sounds, Soft, Tenderness (RUQ TENDERNESS) Back: Positive for: Normal Inspection Extremity: Positive for: Normal ROM Neurologic/Psych: Positive for: Alert, Oriented - Laboratory Results Result Diagrams: 07/21/17 23:43 07/21/17 23:43 - ECG ECG Rhythm: Positive for: Sinus Rhythm (nsr 93bpm; no ectopy no acute changes) O2 Sat by Pulse Oximetry: 97 - Progress ED Course And Treament: PER FAMILY, PATIENT HAS H/O GASTRITIS AND ONGOING ABDOMINAL PAIN BUT WORSE RECENTLY. CASE D/W DR. BRITT FOR ADMISSION. rocephin 1 gm iv x 1 dose ordered Will order US abdomen for morning. ns 500ml bolus ordered vbg reviewed: lactate 0.9// pH 7.43 Disposition - Clinical Impression Clinical Impression: UTI (urinary tract infection), Positive blood culture - Patient ED Disposition Is Patient to be Admitted: Transfer of Care - Disposition Disposition: Transfer of Care Disposition Time: 23:58 Condition: GOOD Forms: [employer] (Argentine) Patient Signed Over To: Malena Reynoso Handoff Comments: pending CXR
[2017-07-21 23:46] LABS: BASO # 0.1 K/uL (0.0-0.2); BASO % 0.6 % (0.0-2.0); EOS % 0.3 % (0.0-4.0); HEMATOCRIT 41.3 % (34.0-47.0); LYMPH # 1.6 K/uL (1.0-4.3); LYMPH % 16.8 % (20.0-40.0); MEAN CELL VOLUME 90.2 fl (81.0-99.0); MEAN CORPUSCULAR HEMOGLOBIN 30.6 pg (27.0-31.0); MEAN PLATELET VOLUME 8.3 fl (7.2-11.7); MONO # 0.7 K/uL (0.0-0.8); MONO % 7.2 % (0.0-10.0); NEUT # 7.1 K/uL (1.8-7.0); NEUT % 75.1 % (50.0-75.0); NRBC % 0.1 % (0.0-0.0); RED CELL DISTRIBUTION WIDTH 13.9 % (11.5-14.5); WHITE BLOOD COUNT 9.5 K/uL (4.8-10.8)
[2017-07-21 23:58] LABS: ALB/GLOB RATIO 1.3 (1.0-2.1); ALKALINE PHOSPHATASE 93 U/L (38-126); ALT/SGPT 52 U/L (9-52); AST/SGOT 52 U/L (14-36); BLOOD UREA NITROGEN 10 mg/dl (7-17); CALCIUM 9.5 mg/dL (8.4-10.2); CARBON DIOXIDE 21 mmol/L (22-30); CHLORIDE 101 mmol/L (98-107); GFR AFRICAN-AMERICAN > 60; GLUCOSE,RANDOM 94 mg/dL (65-105); LIPASE 168 U/L (23-300); SODIUM 134 mmol/l (132-148); TOTAL PROTEIN 7.5 G/DL (6.3-8.2)
[2017-07-22 00:02] LABS: PARTIAL THROMBOPLASTIN TIME 29.9 Seconds (25.6-37.1)
[2017-07-22 00:07] LABS: VENOUS BLOOD GAS MODE ROOM AIR; VENOUS BLOOD GAS PCO2 40 mmHg (40-60); VENOUS BLOOD PH 7.43 (7.32-7.43)
[2017-07-22] MEDS ORDERED: cefTRIAXone (Rocephin) 1 gm Inj ONE (00:10)
[2017-07-22 00:20] LABS: RBC URINE 2 /hpf (0-3); URINE BACTERIA RARE (<OCC); URINE BILIRUBIN NEGATIVE (NEGATIVE); URINE BLOOD MODERATE (NEGATIVE); URINE COLOR YELLOW (YELLOW); URINE GLUCOSE (UA) NEG (Normal); URINE KETONE NEGATIVE (NEGATIVE); URINE LEUKOCYTE ESTERASE MOD Leu/uL (Negative); URINE PROTEIN NEGATIVE (NEGATIVE); URINE UROBILINOGEN 0.2-1.0 mg/dL (0.2-1.0); WBC URINE 26 /hpf (0-5)
[2017-07-22] MEDS: Sodium Chloride 0.9% 500 ML IV SCH ×2 (01:42→23:16)
[2017-07-22 06:44] VITALS: BMI 33.4
[2017-07-22] MEDS ORDERED: Pneumococcal 23-Valent Vaccine IM ONE (09:00)
--- NOTE | 2017-07-22 11:18 | US ---
HISTORY: R/O GALLBLADDER DISEASE COMPARISON: None. TECHNIQUE: Grayscale imaging was performed. FINDINGS: LIVER: Measures 17.0 cm in length. There is diffuse increased echogenicity of the liver parenchyma and heterogeneous echotexture. No mass. No intrahepatic bile duct dilatation. GALLBLADDER: The gallbladder is well distended without gallstones, wall thickening or pericholecystic fluid. The sonographic Padilla sign is negative. COMMON BILE DUCT: Measures 3.4 mm. No stones. No dilatation. PANCREAS: Unremarkable as visualized. No mass. No ductal dilatation. RIGHT KIDNEY: Measures 10.3 cm in length. Normal echogenicity. No calculus, mass, or hydronephrosis. There is a 2.9 x 2.0 x 2.5 cm simple cyst in the lower pole. AORTA: No aneurysmal dilatation. IVC: Unremarkable. OTHER FINDINGS: None . IMPRESSION: Mild hepatomegaly. Diffuse increased echogenicity and coarse echotexture in the liver may reflect hepatic steatosis however parenchymal infectious/ inflammatory etiologies cannot be entirely excluded. Clinical and laboratory correlation is advised. No evidence of cholelithiasis or biliary dilatation. A preliminary report was provided by [employer].
--- NOTE | 2017-07-22 11:31 | RAD ---
PROCEDURE: CHEST RADIOGRAPH, 1 VIEW HISTORY: routine COMPARISON: 07/20/2017. FINDINGS: LUNGS: Clear. PLEURA: No pneumothorax or pleural fluid seen. CARDIOVASCULAR: No radiographic findings to suggest acute or significant cardiovascular disease. OSSEOUS STRUCTURES: No significant abnormalities. VISUALIZED UPPER ABDOMEN: Normal. OTHER FINDINGS: None. IMPRESSION: No active disease. No acute/significant interval changes.
--- NOTE | 2017-07-22 16:03 | CP.PCM.HP ---
History of Present Illness - History of Present Illness History of Present Illness: 82 y/o F, with multiple medical conditions, brought to ER [facility] by her Son, to be evaluated for tactile high Fever at home (In ER 100.5 HR 101), chills, associated to weakness on DOA, Pt taking Tylenol with no relief. Worsening symptoms: Blood C-S positive for Gram Negative Delio on 07/20/17, and U C-S from 07/21/17 also showing (+) for Gram negative delio. Pt c/o of Flank pain b/l, body ache ( back,hips, legs, head ), urgency associated to dysuria. 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 Pt has Hx of Chronic abdominal pain, Hx fatty stomach tumor removed, Hernia repair. Pt denied: Nausea, vomiting, diarrhea, hematuria, syncope, CP, SOB, cough, sick contact, recent travel. CXR shows: No active disease. On 07/21/17 Abdominal U-S reveals: Diffused increased echogenicity echotexture in the liver that may reflect hepatic steatosis. Infectious/inflammatory etiologies cannot be entirely excluded. Present on Admission - Present on Admission Any Indicators Present on Admission: No Review of Systems - Constitutional Constitutional: Chills, Fever, Headache, Weakness - EENT Eyes: Other (negative) Ears: Other (negative) Nose/Mouth/Throat: Other (negative) - Cardiovascular Cardiovascular: Rapid Heart Rate - Respiratory Respiratory: Other (negative) - Gastrointestinal Gastrointestinal: Constipation, Other (flank pain b/l) - Genitourinary Genitourinary: Dysuria, Urinary Urgency - Musculoskeletal Musculoskeletal: Arthralgias, Back Pain - Integumentary Integumentary: Other (negative) - Neurological Neurological: Headaches - Psychiatric Psychiatric: Memory Loss (mild), Other (negative) - Endocrine Endocrine: Other (negative) - Hematologic/Lymphatic Hematologic: Other (negative) Past Patient History - Past Medical History & Family History Pertinent Family History: Unknown - Past Social History Smoking Status: Never Smoked Alcohol: None Drugs: Denies Home Situation {Lives}: With Family - CARDIAC Hx Cardiac Disorders: Yes (HTN) Hx Hypercholesterolemia: Yes Hx Hypertension: Yes Other/Comment: Hyperlipidemia - PULMONARY Hx Respiratory Disorders: No - NEUROLOGICAL Hx Alzheimer's Disease: Yes - HEENT Hx HEENT Problems: No - RENAL Hx Chronic Kidney Disease: No - ENDOCRINE/METABOLIC Hx Endocrine Disorders: Yes Hx Hypothyroidism: Yes - HEMATOLOGICAL/ONCOLOGICAL Hx Blood Disorders: No Hx AIDS: No Hx Human Immunodeficiency Virus (HIV): No - INTEGUMENTARY Hx Dermatological Problems: No - MUSCULOSKELETAL/RHEUMATOLOGICAL Hx Musculoskeletal Disorders: Yes (Osteoporisis) Hx Back Pain: Yes Hx Falls: Yes - GASTROINTESTINAL Hx Gastrointestinal Disorders: Yes Hx Constipation: Yes Hx Diverticulitis: Yes Hx Gastroesophageal Reflux: Yes Hx Ulcer: Yes Other/Comment: Chronic abdominal pain - GENITOURINARY/GYNECOLOGICAL Hx Genitourinary Disorders: Yes Hx Urinary Tract Infection: Yes - PSYCHIATRIC Hx Psychophysiologic Disorder: No Hx Substance Use: No - SURGICAL HISTORY Hx Surgeries: Yes Hx Herniorrhaphy: Yes Other/Comment: Removal of stomach tumor - ANESTHESIA Hx Anesthesia: Yes Hx Anesthesia Reactions: No Hx Malignant Hyperthermia: No Meds Allergies/Adverse Reactions: Allergies Allergy/AdvReac Type Severity Reaction Status Date / Time No Known Allergies Allergy Verified 12/05/16 23:05 Physical Exam - Constitutional Appears: No Acute Distress - Head Exam Head Exam: NORMAL INSPECTION - Eye Exam Eye Exam: PERRL - ENT Exam ENT Exam: Normal Exam - Neck Exam Neck exam: Positive for: Normal Inspection - Respiratory Exam Respiratory Exam: NORMAL BREATHING PATTERN - Cardiovascular Exam Cardiovascular Exam: REGULAR RHYTHM - GI/Abdominal Exam GI & Abdominal Exam: Normal Bowel Sounds, Soft. absent: Distended, Guarding, Rebound - Extremities Exam Additional comments: Non pitting edema 1+ b/l foot. - Back Exam Back exam: tenderness (L-S) - Neurological Exam Neurological exam: Alert, Oriented x3 - Psychiatric Exam Psychiatric exam: Normal Mood - Skin Skin Exam: Warm Results - Vital Signs Recent Vital Signs: Last Vital Signs Temp 98.9 F 07/22/17 12:36 Pulse 80 07/22/17 13:00 Resp 21 07/22/17 13:00 BP 122/75 07/22/17 13:00 Pulse Ox 94 L 07/22/17 13:00 reviewed J.Joce. - Labs Result Diagrams: 07/21/17 23:43 07/21/17 23:43 Labs: reviewed J.P. - EKG Data EKG comments: reviewed J.P. - Imaging and Cardiology Chest x-ray Status: Report reviewed by me (Bernard) US - abdomen Status: Report reviewed by me (Bernard) CT scan - abdomen Status: Report reviewed by me (of 07/20/[address] scan - pelvis Status: Report reviewed by me (of 07/20/17 Bernard) Assessment & Plan (1) UTI (urinary tract infection) Status: Acute Priority: High (2) Pain in joint, multiple sites Status: Chronic Priority: High (3) Hypothyroidism Status: Chronic Priority: Medium (4) HTN (hypertension), benign Status: Chronic Priority: Medium (5) Hypercholesterolemia Status: Chronic Priority: Low - Assessment and Plan (Free Text) Plan: Continue Rocephine,IV fuid, Pepcid and rest of Tx. - Date & Time Date: 07/22/17 Time: 10:00
[2017-07-22] MEDS: Pravastatin Sodium 40 MG TAB PO SCH (22:56)
[2017-07-23] MEDS: Sodium Chloride 0.9% 500 ML IV SCH ×5 (06:18→14:30)
[2017-07-23] MEDS: Levothyroxine 88 MCG TAB PO SCH (06:18)
[2017-07-23 06:44] LABS: ALB/GLOB RATIO 1.3 (1.0-2.1); ALKALINE PHOSPHATASE 72 U/L (38-126); ALT/SGPT 45 U/L (9-52); AST/SGOT 43 U/L (14-36); BILIRUBIN,TOTAL 0.6 mg/dl (0.2-1.3); BLOOD UREA NITROGEN 11 mg/dl (7-17); CALCIUM 8.8 mg/dL (8.4-10.2); CARBON DIOXIDE 20 mmol/L (22-30); CHLORIDE 107 mmol/L (98-107); CHOLESTEROL 157 mg/dL (0-199); GFR AFRICAN-AMERICAN > 60; GLUCOSE,RANDOM 96 mg/dL (65-105); POTASSIUM 3.7 MMOL/L (3.6-5.0); SODIUM 137 mmol/l (132-148); TOTAL PROTEIN 6.5 G/DL (6.3-8.2)
[2017-07-23 06:48] LABS: HEMATOCRIT 39.3 % (34.0-47.0); MEAN CELL VOLUME 90.3 fl (81.0-99.0); MEAN CORPUSCULAR HEMOGLOBIN 30.5 pg (27.0-31.0); MEAN CORPUSCULAR HGB CONC 33.8 g/dL (33.0-37.0); WHITE BLOOD COUNT 9.9 K/uL (4.8-10.8)
[2017-07-23 07:15] LABS: THYROID STIMULATING HORMONE 2.88 mIU/ML (0.46-4.68)
[2017-07-23] MEDS: cefTRIAXone 2 GM in Sodium Chloride 0.9% 100 ML IVPB SCH (09:30)
[2017-07-23] MEDS: Enoxaparin 40 mg Syringe SC SCH (09:30)
--- NOTE | 2017-07-23 16:46 | CP.PCM.PN ---
Subjective - Date & Time of Evaluation Date of Evaluation: 07/23/17 Time of Evaluation: 11:25 - Subjective Subjective: F/U UTI Pt with no c/o, smiling, mild L-S pain. Objective - Vital Signs/Intake and Output Vital Signs (last 24 hours): Temp Pulse Resp BP Pulse Ox 98.4 F 69 14 122/76 97 07/23/17 16:16 07/23/17 16:16 07/23/17 16:16 07/23/17 16:16 07/23/17 16:16 - Medications Medications: Current Medications Amlodipine Besylate (Norvasc) 2.5 mg PO DAILY [facility] Last Admin: 07/23/17 08:29 Dose: 2.5 mg Donepezil HCl (Aricept) 10 mg PO [facility] Last Admin: 07/22/17 22:56 Dose: 10 mg Enoxaparin Sodium (Lovenox) 40 mg SC DAILY [facility] PRN Reason: Protocol Last Admin: 07/23/17 09:30 Dose: 40 mg Sodium Chloride (Sodium Chloride 0.9%) 500 mls @ 250 mls/hr IV .Q2H [facility] Last Admin: 07/23/17 12:30 Dose: Not Given Ceftriaxone Sodium 2 gm/ (Sodium Chloride) 100 mls @ 100 mls/hr IVPB DAILY [facility] Last Admin: 07/23/17 09:30 Dose: 100 mls/hr Levothyroxine Sodium (Synthroid) 88 mcg PO DAILY@0630 [facility] Last Admin: 07/23/17 06:18 Dose: 88 mcg Pravastatin Sodium (Pravachol) 40 mg PO HS [facility] Last Admin: 07/22/17 22:56 Dose: 40 mg Sucralfate (Carafate Tab) 1 gm PO TID [facility] Last Admin: 07/23/17 16:37 Dose: 1 gm - Labs Labs: 07/23/17 05:00 07/23/17 05:00 PT 12.5 Seconds (9.8-13.1) 07/21/17 23:49 INR 1.2 (0.9-1.2) 07/21/17 23:49 APTT 29.9 Seconds (25.6-37.1) 07/21/17 23:49 - Constitutional Appears: No Acute Distress - Head Exam Head Exam: NORMAL INSPECTION - Eye Exam Eye Exam: PERRL - ENT Exam ENT Exam: Normal Exam - Neck Exam Neck Exam: Normal Inspection - Respiratory Exam Respiratory Exam: NORMAL BREATHING PATTERN - Cardiovascular Exam Cardiovascular Exam: REGULAR RHYTHM - GI/Abdominal Exam GI & Abdominal Exam: Soft, Normal Bowel Sounds. absent: Guarding, Rebound - Extremities Exam Additional comments: Non pitting edema 1+ b/l foot - Back Exam Back Exam: tenderness (L-S) - Neurological Exam Neurological Exam: Alert, Oriented x3 - Psychiatric Exam Psychiatric exam: Normal Mood - Skin Skin Exam: Warm Assessment and Plan (1) UTI (urinary tract infection) Status: Acute (2) Pain in joint, multiple sites Status: Chronic (3) Hypothyroidism Status: Chronic (4) HTN (hypertension), benign Status: Chronic (5) Hypercholesterolemia Status: Chronic - Assessment and Plan (Free Text) Plan: Continue current Tx, ID consult.
--- NOTE | 2017-07-23 18:46 | CP.PCM.CON ---
History of Present Illness - History of Present Illness History of Present Illness: 82 y/o F, with multiple medical conditions, brought to ER to be evaluated for Fever at home (In ER 100.5 HR 101), chills, associated to weakness on DOA, Pt Worsening symptoms: Blood C-S positive for Gram Negative Delio on 07/20/17, and U C-S from 07/21/17 also showing (+) for Gram negative delio. Pt c/o of Flank pain b/l, body ache ( back,hips, legs, head ), urgency associated to dysuria. Currently, Pt Dx with UTI from [facility] ER day [employer], Pt had Abd/Pel CT showing no obstructive uropathy but multiple non acute findings. 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 Pt denied: Nausea, vomiting, diarrhea, hematuria, syncope, CP, SOB, cough, sick contact, recent travel. CXR shows: No active disease. On 07/21/17 Abdominal U-S reveals: Diffused increased echogenicity echotexture in the liver that may reflect hepatic steatosis. Infectious/inflammatory etiologies cannot be entirely excluded. - Medical History PMH: Alzheimer's Disease, HTN, Hypercholesterolemia, Hyperlipidemia, Hypothyroidism, Osteoporosis - Surgical History Surgical History: Hernia Repair Other surgeries: SX FOR BLADDER TUMOR REMOVAL Review of Systems - Review of Systems All systems: reviewed and no additional remarkable complaints except - Constitutional Constitutional: As Per HPI, Anorexia, Chills, Fever - EENT Eyes: absent: As Per HPI, Blind Spots, Blurred Vision, Change in Vision, Decreased Night Vision, Diplopia, Discharge, Dry Eye, Exophthalmos, Floaters, Irritation, Itchy Eyes, Loss of Peripheral Vision, Pain, Photophobia, Requires Corrective Lenses, Sees Flashes, Spots in Vision, Tunnel Vision, Other Visual Disturbances, Loss of Vision, Other Ears: absent: As Per HPI, Decreased Hearing, Ear Discharge, Ear Pain, Tinnitus, Abnormal Hearing, Disequilibrium, Dizziness, Other Nose/Mouth/Throat: absent: As Per HPI, Epistaxis, Nasal Congestion, Nasal Discharge, Nasal Obstruction, Nasal Trauma, Nose Pain, Post Nasal Drip, Sinus Pain, Sinus Pressure, Bleeding Gums, Change in Voice, Dental Pain, Dry Mouth, Dysphagia, Halitosis, Hoarsness, Lip Swelling, Mouth Lesions, Mouth Pain, Odynophagia, Sore Throat, Throat Swelling, Tongue Swelling, Facial Pain, Neck Pain, Neck Mass, Other - Breasts Breasts: absent: As Per HPI, Change in Shape, Mass, Pain, Nipple Discharge, Nipple Inversion, Skin Changes, Swelling, Other - Cardiovascular Cardiovascular: absent: As Per HPI, Acrocyanosis, Chest Pain, Chest Pain at Rest , Chest Pain with Activity, Claudication, Diaphoresis, Dyspnea, Dyspnea on Exertion, Edema, Irregular Heart Rhythm, Pain Radiating to Arm/Neck/Jaw, Leg Edema, Leg Ulcers, Lightheadedness, Orthopnea, Palpitations, Paroxysmal Nocturnal Dyspnea, Pedal Edema, Radiating Pain, Rapid Heart Rate, Slow Heart Rate, Syncope, Other - Respiratory Respiratory: absent: As Per HPI, Cough, Dyspnea, Hemoptysis, Dyspnea on Exertion , Wheezing, Snoring, Stridor, Pain on Inspiration, Chest Congestion, Excessive Mucous Production, Change in Mucous Color, Pain with Coughing, Other - Gastrointestinal Gastrointestinal: absent: As Per HPI, Abdominal Pain, Belching, Bloating, Change in Bowel Habits, Change in Stool Character, Coffee Ground Emesis, Constipation, Cramping, Diarrhea, Dyspepsia, Dysphagia, Early Satiety, Excessive Flatus, Fecal Incontinence, Heartburn, Hematemesis, Hematochezia, Loose Stools, Melena, Nausea, Odynophagia, Temesmus, Vomiting, Other - Genitourinary Genitourinary: As Per HPI - Reproductive: Female Reproductive:Female: absent: As Per HPI, Amenorrhea, Amenorrhea/ Control, Currently Menstual, Cycle <21 Days, Cycle >35 Days, Cycle Variable, Menses 1-7 Days, Menses >/= 8 Days, Menses Variable, Cycle > 4 Weeks Between, No Menses for 6 Months, Heavy Menses, Light Menses, Normal Menses, Spotting Between Cycles , S/P Hysterectomy, Menopausal, Post Menopausal, Premenarche, Abnormal Vaginal Bleeding, Dysmenorrhea, Dyspareunia, Genital Lesions, Genital Pruritis, Pelvic Pain, Prolapse Symptoms, Sexual Dysfunction, Vaginal Discharge, Vaginal Dryness , Vaginal Odor, Vaginal Pruritis, Other - Menstruation Menstruation: absent: As Per HPI, Amenorrhea, Amenorrhea/ Control, Currently Menstual, Cycle <21 Days, Cycle >35 Days, Cycle Variable, Menses 1-7 Days, Menses >/= 8 Days, Menses Variable, Cycle > 4 Weeks Between, No Menses for 6 Months, Heavy Menses, Light Menses, Normal Menses, Spotting Between Cycles , S/P Hysterectomy, Menopausal, Post Menopausal, Premenarche, Abnormal Vaginal Bleeding, Dysmenorrhea, Other - Musculoskeletal Musculoskeletal: absent: As Per HPI, Abnormal Gait, Arthralgias, Atrophy, Back Pain, Deformity, Joint Swelling, Limited Range of Motion, Loss of Height, Muscle Cramps, Muscle Weakness, Myalgias, Neck Pain, Numbness, Radiating Pain into Limb, Stiffness, Tingling, Other - Integumentary Integumentary: absent: As Per HPI, Acne, Alopecia, Bleeding Lesions, Change in Hair, Change in Nails, Change in Pigmentation, Changing Lesions, Dry Skin, Erythema, Furuncle, Hirsutism, Lesions, New Lesions, Non-Healing Lesions, Photosensitivity, Pruritus, Rash, Skin Pain, Skin Ulcer, Sores, Striae, Swelling , Unusual Bruising, Wounds, Jaundice, Other - Neurological Neurological: absent: As Per HPI, Abnormal Gait, Abnormal Hearing, Abnormal Movements, Abnormal Speech, Behavioral Changes, Burning Sensations, Confusion, Convulsions, Disequilibrium, Dizziness, Numbness, Focal Weakness, Frequent Falls , Headaches, Lack of Coordination, Loss of Vision, Memory Loss, Paresthesias, Radicular Pain, Restless Legs, Sensory Deficit, Syncope, Tingling, Tremor, Vertigo, Weakness, Other Visual Disturbances, Other - Psychiatric Psychiatric: absent: As Per HPI, Abnormal Sleep Pattern, Anhedonia, Anxiety, Auditory Hallucinations, Behavioral Changes, Change in Appetite, Change in Libido, Confusion, Depression, Difficulty Concentrating, Hallucinations, Homicidal Ideation, Hopelessness, Irritability, Memory Loss, Mood Swings, Panic Attacks, Paranoia, Suicidal Ideation, Visual Hallucinations, Tactile Hallucinations, Other - Endocrine Endocrine: absent: As Per HPI, Change in Body Appearance, Change in Libido, Cold Intolorance, Deepening of Voice, Excessive Sweating, Fatigue, Flushing, Heat Intolorance, Increase in Ring/Shoe/Hat Size, Palpitations, Polydipsia, Polyphagia, Polyuria, Other - Hematologic/Lymphatic Hematologic: absent: As Per HPI, Easy Bleeding, Easy Bruising, Lymphadenopathy, Other Past Patient History - Past Social History Smoking Status: Never Smoked Alcohol: None Drugs: Denies Home Situation {Lives}: With Family - CARDIAC Hx Cardiac Disorders: Yes (HTN) Hx Hypercholesterolemia: Yes Hx Hypertension: Yes Other/Comment: Hyperlipidemia - PULMONARY Hx Respiratory Disorders: No - NEUROLOGICAL Hx Alzheimer's Disease: Yes - HEENT Hx HEENT Problems: No - RENAL Hx Chronic Kidney Disease: No - ENDOCRINE/METABOLIC Hx Endocrine Disorders: Yes Hx Hypothyroidism: Yes - HEMATOLOGICAL/ONCOLOGICAL Hx Blood Disorders: No Hx AIDS: No Hx Human Immunodeficiency Virus (HIV): No - INTEGUMENTARY Hx Dermatological Problems: No - MUSCULOSKELETAL/RHEUMATOLOGICAL Hx Musculoskeletal Disorders: Yes (Osteoporisis) Hx Back Pain: Yes Hx Falls: Yes - GASTROINTESTINAL Hx Gastrointestinal Disorders: Yes Hx Constipation: Yes Hx Diverticulitis: Yes Hx Gastroesophageal Reflux: Yes Hx Ulcer: Yes Other/Comment: Chronic abdominal pain - GENITOURINARY/GYNECOLOGICAL Hx Genitourinary Disorders: Yes Hx Urinary Tract Infection: Yes - PSYCHIATRIC Hx Psychophysiologic Disorder: No Hx Substance Use: No - SURGICAL HISTORY Hx Surgeries: Yes Hx Herniorrhaphy: Yes Other/Comment: Removal of stomach tumor - ANESTHESIA Hx Anesthesia: Yes Hx Anesthesia Reactions: No Hx Malignant Hyperthermia: No Meds Allergies/Adverse Reactions: Allergies Allergy/AdvReac Type Severity Reaction Status Date / Time No Known Allergies Allergy Verified 12/05/16 23:05 - Medications Medications: Current Medications Amlodipine Besylate (Norvasc) 2.5 mg PO DAILY [facility] Last Admin: 07/23/17 08:29 Dose: 2.5 mg Donepezil HCl (Aricept) 10 mg PO [facility] Last Admin: 07/22/17 22:56 Dose: 10 mg Enoxaparin Sodium (Lovenox) 40 mg SC DAILY [facility] PRN Reason: Protocol Last Admin: 07/23/17 09:30 Dose: 40 mg Ceftriaxone Sodium 2 gm/ (Sodium Chloride) 100 mls @ 100 mls/hr IVPB DAILY [facility] Last Admin: 07/23/17 09:30 Dose: 100 mls/hr Levothyroxine Sodium (Synthroid) 88 mcg PO DAILY@0630 [facility] Last Admin: 07/23/17 06:18 Dose: 88 mcg Pravastatin Sodium (Pravachol) 40 mg PO [facility] Last Admin: 07/22/17 22:56 Dose: 40 mg Sucralfate (Carafate Tab) 1 gm PO TID [facility] Last Admin: 07/23/17 16:37 Dose: 1 gm Physical Exam - Constitutional Appears: Non-toxic, Chronically Ill - Head Exam Head Exam: ATRAUMATIC, NORMAL INSPECTION, NORMOCEPHALIC - Eye Exam Eye Exam: EOMI, PERRL. absent: Scleral icterus - ENT Exam ENT Exam: Mucous Membranes Dry, Normal External Ear Exam, Normal Oropharynx - Neck Exam Neck exam: Negative for: Lymphadenopathy, Thyromegaly - Respiratory Exam Respiratory Exam: Decreased Breath Sounds, Clear to Auscultation Bilateral - Cardiovascular Exam Cardiovascular Exam: REGULAR RHYTHM, +S1, +S2 - GI/Abdominal Exam GI & Abdominal Exam: Diminished Bowel Sounds, Soft. absent: Tenderness - Rectal Exam Rectal Exam: Deferred - Exam Exam: NORMAL INSPECTION - Extremities Exam Extremities exam: Positive for: pedal pulses present. Negative for: calf tenderness, pedal edema, tenderness - Back Exam Back exam: absent: CVA tenderness (L), CVA tenderness (R), paraspinal tenderness - Neurological Exam Neurological exam: Alert, CN II-XII Intact, Oriented x3, Reflexes Normal - Psychiatric Exam Psychiatric exam: Normal Mood - Skin Skin Exam: Dry, Intact Results - Vital Signs Recent Vital Signs: Last Vital Signs Temp 98.4 F 07/23/17 17:00 Pulse 69 07/23/17 17:00 Resp 14 07/23/17 17:00 BP 122/76 07/23/17 17:00 Pulse Ox 97 07/23/17 17:00 - Labs Result Diagrams: 07/23/17 05:00 07/23/17 05:00 Labs: Laboratory Results - last 24 hr 07/23/17 07/23/17 05:00 05:00 WBC 9.9 RBC 4.35 Hgb 13.3 Hct 39.3 MCV 90.3 MCH 30.5 MCHC 33.8 RDW 14.0 Plt Count 198 Sodium 137 Potassium 3.7 Chloride 107 Carbon Dioxide 20 L Anion Gap 14 BUN 11 Creatinine 0.8 Est GFR ( Amer) > 60 Est GFR (Non-Af Amer) > 60 Random Glucose 96 Calcium 8.8 Total Bilirubin 0.6 AST 43 H ALT 45 Alkaline Phosphatase 72 Total Protein 6.5 Albumin 3.7 Globulin 2.8 Albumin/Globulin Ratio 1.3 Triglycerides 138 Cholesterol 157 LDL Cholesterol Direct 104 HDL Cholesterol 27 L TSH 3rd Generation 2.88 Assessment & Plan (1) HTN (hypertension) Status: Acute (2) Positive blood culture Status: Acute (3) UTI (urinary tract infection) Status: Acute Priority: High (4) HTN (hypertension), benign Status: Chronic Priority: Medium (5) Hypercholesterolemia Status: Chronic Priority: Low (6) Hypothyroidism Status: Chronic Priority: Medium (7) Abdominal pain Status: Acute (8) Back pain Status: Acute (9) UTI (urinary tract infection) Status: Acute - Assessment and Plan (Free Text) Assessment: urosepsis- hx of bladder surgery in past cont iv antibiotic consider urine cytology and gu eval will need at least 14 days rx with a bacteriocidal agent
[2017-07-23] MEDS: Pravastatin Sodium 40 MG TAB PO SCH (22:13)
[2017-07-24] MEDS: Levothyroxine 88 MCG TAB PO SCH (05:45)
--- NOTE | 2017-07-24 08:19 | PQF UROSEP ---
This form is a permanent part of the medical record 07/24/17 Dr. Richter, Please clarify the specific condition indicated by the term 'urosepsis'. There is no ICD-10 code for this term. Please see physician response section below or clarify in your progress note. Patient came to the ER on 07/20 and diagnosed with a UTI and sent home. 07/21 Returned to the ER due to + blood cultures from day before. + persistent fever, chills, dysuria. Blood and Urine cultures both growing E Coli from the previous ER visit. WBC 9.5 with a L shift. Treated with Rocephin. Clarification of your documentation is requested to better reflect the severity of illness and intensity of treatment of your patient. Indicators present [x] Documentation of UROSEPSIS [x] Fever or hypothermia: Temp 101 [] WBC count > 12,000/mm3 or <4000/mm3 or 10% immature neutrophils [] Hypotension [] Tachycardia [] Altered mental status/confusion [x] + Urine/Blood Cultures : E Coli [] Other: [] Location in the medical record that reflects the above clinical findings: [] Treatment Provided: [] PHYSICIAN'S RESPONSE Based on your medical judgment of the clinical indicators outlined above, are you treating this patient for a known or suspected: [] Bacteriuria only without infection [] Localized Urinary Tract Infection - pyuria or bacteria in the urine [] Sepsis due to UTI [] UTI with Bacteremia [] Other, please indicate [] [] If unable to determine, please check the box, sign and date. Present On Admission (POA) Indicator: [] Present at the time of admission [] Not present at the time of admission [] Clinically Undetermined In responding to this query, please exercise your independent professional judgment. The fact that a question is asked does not imply that any particular answer is desired or expected. Thank you for your clarification on this documentation. If you have any questions please call:ext [phone] * Thank you, Erin Ponce RN [facility]
[2017-07-24] MEDS: Enoxaparin 40 mg Syringe SC SCH (09:15)
[2017-07-24] MEDS: cefTRIAXone 2 GM in Sodium Chloride 0.9% 100 ML IVPB SCH (11:20)
--- NOTE | 2017-07-24 11:47 | CARD ---
APPROVED REPORT EKG Measurement Heart [id number] NM [id number] [id number] <Conclusion> Normal sinus rhythm Left anterior fascicular block Abnormal ECG
--- NOTE | 2017-07-24 13:29 | CP.PCM.PN ---
Subjective - Date & Time of Evaluation Date of Evaluation: 07/24/17 Time of Evaluation: 10:00 - Subjective Subjective: doing well remains afebrile nad Objective - Vital Signs/Intake and Output Vital Signs (last 24 hours): Temp Pulse Resp BP Pulse Ox 98.1 F 72 20 112/65 95 07/24/17 12:49 07/24/17 12:49 07/24/17 12:49 07/24/17 12:49 07/24/17 12:49 - Medications Medications: Current Medications Amlodipine Besylate (Norvasc) 2.5 mg PO DAILY [facility] Last Admin: 07/24/17 09:16 Dose: 2.5 mg Donepezil HCl (Aricept) 10 mg PO HS [facility] Last Admin: 07/23/17 22:13 Dose: 10 mg Enoxaparin Sodium (Lovenox) 40 mg SC DAILY [facility] PRN Reason: Protocol Last Admin: 07/24/17 09:15 Dose: 40 mg Ceftriaxone Sodium 2 gm/ (Sodium Chloride) 100 mls @ 100 mls/hr IVPB DAILY [facility] Last Admin: 07/24/17 11:20 Dose: 100 mls/hr Levothyroxine Sodium (Synthroid) 88 mcg PO DAILY@0630 [facility] Last Admin: 07/24/17 05:45 Dose: 88 mcg Pravastatin Sodium (Pravachol) 40 mg PO HS [facility] Last Admin: 07/23/17 22:13 Dose: 40 mg Sucralfate (Carafate Tab) 1 gm PO TID [facility] Last Admin: 07/24/17 09:15 Dose: 1 gm - Labs Labs: 07/23/17 05:00 07/23/17 05:00 PT 12.5 Seconds (9.8-13.1) 07/21/17 23:49 INR 1.2 (0.9-1.2) 07/21/17 23:49 APTT 29.9 Seconds (25.6-37.1) 07/21/17 23:49 - Constitutional Appears: Non-toxic, Chronically Ill - Head Exam Head Exam: NORMOCEPHALIC - Eye Exam Eye Exam: PERRL - ENT Exam ENT Exam: Mucous Membranes Dry - Neck Exam Neck Exam: absent: Lymphadenopathy - Respiratory Exam Respiratory Exam: Decreased Breath Sounds - Cardiovascular Exam Cardiovascular Exam: REGULAR RHYTHM - GI/Abdominal Exam GI & Abdominal Exam: Distended, Soft Assessment and Plan (1) HTN (hypertension) Status: Acute (2) Positive blood culture Status: Acute (3) UTI (urinary tract infection) Status: Acute (4) HTN (hypertension), benign Status: Chronic (5) Hypercholesterolemia Status: Chronic (6) Hypothyroidism Status: Chronic (7) Abdominal pain Status: Acute (8) Back pain Status: Acute (9) UTI (urinary tract infection) Status: Acute - Assessment and Plan (Free Text) Assessment: cont iv rocephin for 7 days then PO rx follow up with
--- NOTE | 2017-07-24 13:44 | CP.PCM.PCO ---
Assessment & Plan - Assessment and Plan (Free Text) Assessment: patient will require 1 week of Rocephin 2gm IV Daily and then switch to Cipro 500mg po BID as per ID
--- NOTE | 2017-07-24 18:01 | CP.PCM.PN ---
Subjective - Date & Time of Evaluation Date of Evaluation: 07/24/17 - Subjective Subjective: F/U UTI N/C , no A/D Objective - Vital Signs/Intake and Output Vital Signs (last 24 hours): Temp Pulse Resp BP Pulse Ox 98.6 F 76 19 114/68 97 07/24/17 17:00 07/24/17 17:00 07/24/17 17:00 07/24/17 17:00 07/24/17 17:00 - Medications Medications: Current Medications Amlodipine Besylate (Norvasc) 2.5 mg PO DAILY [facility] Last Admin: 07/24/17 09:16 Dose: 2.5 mg Donepezil HCl (Aricept) 10 mg PO HS [facility] Last Admin: 07/23/17 22:13 Dose: 10 mg Enoxaparin Sodium (Lovenox) 40 mg SC DAILY [facility] PRN Reason: Protocol Last Admin: 07/24/17 09:15 Dose: 40 mg Ceftriaxone Sodium 2 gm/ (Sodium Chloride) 100 mls @ 100 mls/hr IVPB DAILY [facility] Last Admin: 07/24/17 11:20 Dose: 100 mls/hr Levothyroxine Sodium (Synthroid) 88 mcg PO DAILY@0630 [facility] Last Admin: 07/24/17 05:45 Dose: 88 mcg Pravastatin Sodium (Pravachol) 40 mg PO HS [facility] Last Admin: 07/23/17 22:13 Dose: 40 mg Sucralfate (Carafate Tab) 1 gm PO TID [facility] Last Admin: 07/24/17 16:57 Dose: 1 gm - Labs Labs: 07/23/17 05:00 07/23/17 05:00 PT 12.5 Seconds (9.8-13.1) 07/21/17 23:49 INR 1.2 (0.9-1.2) 07/21/17 23:49 APTT 29.9 Seconds (25.6-37.1) 07/21/17 23:49 - Constitutional Appears: No Acute Distress - Head Exam Head Exam: NORMAL INSPECTION - Eye Exam Eye Exam: PERRL - ENT Exam ENT Exam: Normal Exam - Neck Exam Neck Exam: Normal Inspection - Respiratory Exam Respiratory Exam: NORMAL BREATHING PATTERN - Cardiovascular Exam Cardiovascular Exam: REGULAR RHYTHM - GI/Abdominal Exam GI & Abdominal Exam: Soft, Normal Bowel Sounds. absent: Guarding, Rebound - Extremities Exam Extremities Exam: Normal Inspection - Back Exam Back Exam: tenderness (L-S) - Neurological Exam Neurological Exam: Alert, Oriented x3 - Psychiatric Exam Psychiatric exam: Normal Mood - Skin Skin Exam: Warm Assessment and Plan (1) UTI (urinary tract infection) Status: Acute (2) Pain in joint, multiple sites Status: Chronic (3) Hypothyroidism Status: Chronic (4) HTN (hypertension), benign Status: Chronic (5) Hypercholesterolemia Status: Chronic (6) Positive blood culture Status: Acute - Assessment and Plan (Free Text) Plan: Continue Rocephin 2 gm iv for 7 days, Patient treated for UTI and Bacteriemia E Coli , attempt to transfer to TCU
[2017-07-24] MEDS: Pravastatin Sodium 40 MG TAB PO SCH (21:51)
[2017-07-25] MEDS: cefTRIAXone 2 GM in Sodium Chloride 0.9% 100 ML IVPB SCH (09:21)
[2017-07-25] MEDS: Enoxaparin 40 mg Syringe SC SCH (09:28)
[2017-07-25 12:05] VITALS: BP 113/53; PULSE 76; RESP 16; TEMP 98.5; O2SAT 99
--- NOTE | 2017-07-25 13:54 | CP.PCM.PN ---
Subjective - Date & Time of Evaluation Date of Evaluation: 07/25/17 Time of Evaluation: 12:10 - Subjective Subjective: F/U UTI No AD , N/C Objective - Vital Signs/Intake and Output Vital Signs (last 24 hours): Temp Pulse Resp BP Pulse Ox 98.5 F 76 16 113/53 L 99 07/25/17 12:05 07/25/17 12:05 07/25/17 12:05 07/25/17 12:05 07/25/17 12:05 - Medications Medications: Current Medications Amlodipine Besylate (Norvasc) 2.5 mg PO DAILY [facility] Last Admin: 07/25/17 09:29 Dose: 2.5 mg Donepezil HCl (Aricept) 10 mg PO HS [facility] Last Admin: 07/24/17 21:51 Dose: 10 mg Enoxaparin Sodium (Lovenox) 40 mg SC DAILY [facility] PRN Reason: Protocol Last Admin: 07/25/17 09:28 Dose: 40 mg Ceftriaxone Sodium 2 gm/ (Sodium Chloride) 100 mls @ 100 mls/hr IVPB DAILY [facility] Last Admin: 07/25/17 09:21 Dose: 100 mls/hr Levothyroxine Sodium (Synthroid) 88 mcg PO DAILY@0630 [facility] Last Admin: 07/24/17 05:45 Dose: 88 mcg Pravastatin Sodium (Pravachol) 40 mg PO HS [facility] Last Admin: 07/24/17 21:51 Dose: 40 mg Sucralfate (Carafate Tab) 1 gm PO TID [facility] Last Admin: 07/25/17 09:28 Dose: 1 gm - Labs Labs: 07/23/17 05:00 07/23/17 05:00 PT 12.5 Seconds (9.8-13.1) 07/21/17 23:49 INR 1.2 (0.9-1.2) 07/21/17 23:49 APTT 29.9 Seconds (25.6-37.1) 07/21/17 23:49 - Constitutional Appears: No Acute Distress - Head Exam Head Exam: NORMAL INSPECTION - Eye Exam Eye Exam: PERRL - ENT Exam ENT Exam: Normal Oropharynx - Neck Exam Neck Exam: Normal Inspection - Respiratory Exam Respiratory Exam: Clear to Ausculation Bilateral - Cardiovascular Exam Cardiovascular Exam: REGULAR RHYTHM - GI/Abdominal Exam GI & Abdominal Exam: Soft, Normal Bowel Sounds - Extremities Exam Extremities Exam: Normal Inspection - Back Exam Back Exam: tenderness - Neurological Exam Neurological Exam: Oriented x3. absent: Motor Sensory Deficit - Psychiatric Exam Psychiatric exam: Normal Affect, Normal Mood - Skin Skin Exam: Warm Assessment and Plan (1) UTI (urinary tract infection) Status: Acute (2) Pain in joint, multiple sites Status: Chronic (3) Hypothyroidism Status: Chronic (4) HTN (hypertension), benign Status: Chronic (5) Hypercholesterolemia Status: Chronic - Assessment and Plan (Free Text) Plan: to be transfer today to TCU to continue Rocephin treatment for 7 days
== END 2017-07-25 14:25 | DRG 321 ==
LOC: H.ER 22:57 → H.ERHOLD 07-22 00:12 → H.ICU/CCU 07-22 06:02 → H.TEL 07-22 16:59
PROVIDERS: ADMIT Internal Medicine Pulmonary Disease; ATTEND Internal Medicine Pulmonary Disease
PROC: 3E0234Z Introduction of Serum, Toxoid and Vaccine into Muscle, Percutaneous Approach (ICD-10-PCS; principal; 2017-07-22)
DX: N39.0 Urinary tract infection, site not specified (principal); B96.20 Unspecified Escherichia coli [E. coli] as the cause of diseases classified elsewhere; G30.9 Alzheimer's disease, unspecified; F02.80 Dementia in other diseases classified elsewhere, unspecified severity, without behavioral disturbance, psychotic disturbance, mood disturbance, and anxiety; I10 Essential (primary) hypertension; E78.5 Hyperlipidemia, unspecified; E03.9 Hypothyroidism, unspecified; E78.00 Pure hypercholesterolemia, unspecified; K21.9 Gastro-esophageal reflux disease without esophagitis; G89.29 Other chronic pain; M81.0 Age-related osteoporosis without current pathological fracture; Z23 Encounter for immunization; Z87.440 Personal history of urinary (tract) infections

== ENCOUNTER 2017-07-25 08:20 | Inpatient (IN) | payer OTHER ==
[2017-07-25 14:36] VITALS: BMI 32.8
[2017-07-25 16:14] VITALS: RESP 20
[2017-07-25] MEDS: Pravastatin Sodium 40 MG TAB PO SCH (22:05)
[2017-07-26] MEDS: Levothyroxine 88 MCG TAB PO SCH (06:47)
[2017-07-26] MEDS ORDERED: cefTRIAXone 2 GM in Sodium Chloride 0.9% 100 ML IVPB SCH (09:00)
[2017-07-26] MEDS: Enoxaparin 40 mg Syringe SC SCH (09:09)
--- NOTE | 2017-07-26 13:53 | CP.PCM.HP ---
History of Present Illness - History of Present Illness History of Present Illness: Pt admitted to [facility] on 07/22/17 with Dx of UTI, Bacteremia, On 07/25/17 , Pt improved and was transfer from Telemetry floor to TCU unit to continue abx IV treatment for 7 more days. Pt denied fever, chills, dizziness, CP, SOB, abdominal pain n/v/d. Present on Admission - Present on Admission Any Indicators Present on Admission: No Review of Systems - Constitutional Constitutional: Other (negative) - EENT Eyes: Other (negative) Ears: Other (negative) Nose/Mouth/Throat: Other (negative) - Cardiovascular Cardiovascular: Other (negative) - Respiratory Respiratory: Other (negative) - Gastrointestinal Gastrointestinal: Other (negative) - Genitourinary Genitourinary: Other (negative) - Musculoskeletal Musculoskeletal: Arthralgias, Back Pain - Integumentary Integumentary: Other (negative) - Neurological Neurological: Other (negative) - Psychiatric Psychiatric: Memory Loss (mild) - Endocrine Endocrine: Other (negative) - Hematologic/Lymphatic Hematologic: Other (negative) Past Patient History - Past Medical History & Family History Past Medical History?: Yes Pertinent Family History: Unknown - Past Social History Smoking Status: Never Smoked Alcohol: None Drugs: Denies Home Situation {Lives}: With Family - CARDIAC Hx Cardiac Disorders: Yes (HTN) Hx Hypercholesterolemia: Yes Hx Hypertension: Yes Other/Comment: Hyperlipidemia - PULMONARY Hx Respiratory Disorders: No - NEUROLOGICAL Hx Alzheimer's Disease: Yes - HEENT Hx HEENT Problems: No - RENAL Hx Chronic Kidney Disease: No - ENDOCRINE/METABOLIC Hx Endocrine Disorders: Yes Hx Hypothyroidism: Yes - HEMATOLOGICAL/ONCOLOGICAL Hx Blood Disorders: No Hx AIDS: No Hx Human Immunodeficiency Virus (HIV): No - INTEGUMENTARY Hx Dermatological Problems: No - MUSCULOSKELETAL/RHEUMATOLOGICAL Hx Musculoskeletal Disorders: Yes (Osteoporisis) Hx Back Pain: Yes Hx Falls: Yes - GASTROINTESTINAL Hx Gastrointestinal Disorders: Yes Hx Constipation: Yes Hx Diverticulitis: Yes Hx Gastroesophageal Reflux: Yes Hx Ulcer: Yes Other/Comment: Chronic abdominal pain - GENITOURINARY/GYNECOLOGICAL Hx Genitourinary Disorders: Yes Hx Urinary Tract Infection: Yes (recent admission) - PSYCHIATRIC Hx Psychophysiologic Disorder: No Hx Substance Use: No - SURGICAL HISTORY Hx Surgeries: Yes Hx Herniorrhaphy: Yes Other/Comment: Removal of stomach tumor - ANESTHESIA Hx Anesthesia: Yes Hx Anesthesia Reactions: No Hx Malignant Hyperthermia: No Has any member of the family had a problem w/ anesthesia?: No Meds Allergies/Adverse Reactions: Allergies Allergy/AdvReac Type Severity Reaction Status Date / Time No Known Allergies Allergy Verified 07/25/17 14:36 Physical Exam - Constitutional Appears: No Acute Distress - Head Exam Head Exam: NORMAL INSPECTION - Eye Exam Eye Exam: PERRL - ENT Exam ENT Exam: Normal Exam - Neck Exam Neck exam: Positive for: Normal Inspection - Respiratory Exam Respiratory Exam: Clear to Auscultation Bilateral - Cardiovascular Exam Cardiovascular Exam: REGULAR RHYTHM - GI/Abdominal Exam GI & Abdominal Exam: Normal Bowel Sounds, Soft - Extremities Exam Extremities exam: Positive for: normal inspection - Back Exam Back exam: NORMAL INSPECTION - Neurological Exam Neurological exam: Alert, Oriented x3 - Psychiatric Exam Psychiatric exam: Normal Affect, Normal Mood - Skin Skin Exam: Warm Results - Vital Signs Recent Vital Signs: Last Vital Signs Temp 97.9 F 07/26/17 09:18 Pulse 71 07/26/17 09:18 Resp 20 07/26/17 09:18 BP 122/79 07/26/17 09:18 Pulse Ox 96 07/26/17 09:18 reviewed J.P. - Labs Labs: reviewed J.P. Assessment & Plan (1) UTI (urinary tract infection) Status: Acute Priority: High (2) Bacteremia Status: Acute Priority: High (3) HTN (hypertension), benign Status: Chronic Priority: Medium (4) Hypercholesterolemia Status: Chronic Priority: Low (5) Hypothyroidism Status: Chronic Priority: Medium - Assessment and Plan (Free Text) Plan: Continue Rocephin IV and rest of Tx, PT, OT. - Date & Time Date: 07/26/17 Time: 11:00
[2017-07-26] MEDS ORDERED: cefTRIAXone (Rocephin) 2 gm Inj IVPB SCH (17:00)
[2017-07-26] MEDS: cefTRIAXone 2 GM in Sodium Chloride 0.9% 100 ML IVPB SCH (17:36)
[2017-07-26] MEDS: Pravastatin Sodium 40 MG TAB PO SCH (21:11)
[2017-07-27] MEDS: Levothyroxine 88 MCG TAB PO SCH (05:51)
[2017-07-27] MEDS: Enoxaparin 40 mg Syringe SC SCH (09:21)
[2017-07-27] MEDS: cefTRIAXone 2 GM in Sodium Chloride 0.9% 100 ML IVPB SCH (16:51)
--- NOTE | 2017-07-27 18:48 | CP.PCM.PN ---
Subjective - Date & Time of Evaluation Date of Evaluation: 07/27/17 Time of Evaluation: 12:40 - Subjective Subjective: F/U UTI Pt with no c/o, no pain. Objective - Vital Signs/Intake and Output Vital Signs (last 24 hours): Temp Pulse Resp BP Pulse Ox 97.2 F L 74 20 148/85 96 07/27/17 16:32 07/27/17 16:32 07/27/17 16:32 07/27/17 16:32 07/27/17 16:32 - Medications Medications: Current Medications Amlodipine Besylate (Norvasc) 2.5 mg PO DAILY [facility] Last Admin: 07/27/17 09:22 Dose: 2.5 mg Donepezil HCl (Aricept) 10 mg PO [facility] Last Admin: 07/26/17 21:11 Dose: 10 mg Enoxaparin Sodium (Lovenox) 40 mg SC DAILY [facility] PRN Reason: Protocol Last Admin: 07/27/17 09:21 Dose: 40 mg Ceftriaxone Sodium 2 gm/ (Sodium Chloride) 100 mls @ 100 mls/hr IVPB DAILY@ 1700 [facility] Stop: 08/01/17 20:00 Last Admin: 07/26/17 17:36 Dose: 100 mls/hr Levothyroxine Sodium (Synthroid) 88 mcg PO DAILY@0630 [facility] Last Admin: 07/27/17 05:51 Dose: 88 mcg Pravastatin Sodium (Pravachol) 40 mg PO [facility] Last Admin: 07/26/17 21:11 Dose: 40 mg Sucralfate (Carafate Tab) 1 gm PO TID [facility] Last Admin: 07/27/17 17:01 Dose: 1 gm - Constitutional Appears: No Acute Distress - Head Exam Head Exam: NORMAL INSPECTION - Eye Exam Eye Exam: PERRL - ENT Exam ENT Exam: Normal Exam - Neck Exam Neck Exam: Normal Inspection - Respiratory Exam Respiratory Exam: NORMAL BREATHING PATTERN - Cardiovascular Exam Cardiovascular Exam: REGULAR RHYTHM - GI/Abdominal Exam GI & Abdominal Exam: Soft, Normal Bowel Sounds - Extremities Exam Extremities Exam: Normal Inspection - Back Exam Back Exam: NORMAL INSPECTION - Neurological Exam Neurological Exam: Alert, Oriented x3. absent: Motor Sensory Deficit - Psychiatric Exam Psychiatric exam: Normal Affect, Normal Mood - Skin Skin Exam: Warm Assessment and Plan (1) Bacteremia Status: Acute (2) UTI (urinary tract infection) Status: Acute (3) HTN (hypertension) Status: Acute (4) Hypercholesterolemia Status: Chronic (5) Hypothyroidism Status: Chronic - Assessment and Plan (Free Text) Plan: Continue Rocephin, rest of Tx PT,OT.
[2017-07-27] MEDS: Pravastatin Sodium 40 MG TAB PO SCH (21:23)
[2017-07-28] MEDS: Levothyroxine 88 MCG TAB PO SCH (06:21)
[2017-07-28] MEDS: Enoxaparin 40 mg Syringe SC SCH (09:17)
--- NOTE | 2017-07-28 11:12 | CP.PCM.PN ---
Subjective - Date & Time of Evaluation Date of Evaluation: 07/28/17 Time of Evaluation: 11:00 - Subjective Subjective: Patient is feeling well today, has no c/o of fever, chills, chest pain, shortness of breath. She has mild bilateral upper abdominal pain but says that it is improving. No other c/o today. Objective - Vital Signs/Intake and Output Vital Signs (last 24 hours): Temp Pulse Resp BP Pulse Ox 97.9 F 77 20 125/70 95 07/28/17 08:23 07/28/17 09:17 07/28/17 08:23 07/28/17 09:17 07/28/17 08:23 - Medications Medications: Current Medications Amlodipine Besylate (Norvasc) 2.5 mg PO DAILY [facility] Last Admin: 07/28/17 09:17 Dose: 2.5 mg Donepezil HCl (Aricept) 10 mg PO [facility] Last Admin: 07/27/17 21:23 Dose: 10 mg Enoxaparin Sodium (Lovenox) 40 mg SC DAILY [facility] PRN Reason: Protocol Last Admin: 07/28/17 09:17 Dose: 40 mg Ceftriaxone Sodium 2 gm/ (Sodium Chloride) 100 mls @ 100 mls/hr IVPB DAILY@ 1700 [facility] Stop: 08/01/17 20:00 Last Admin: 07/27/17 16:51 Dose: 100 mls/hr Levothyroxine Sodium (Synthroid) 88 mcg PO DAILY@0630 [facility] Last Admin: 07/28/17 06:21 Dose: 88 mcg Pravastatin Sodium (Pravachol) 40 mg PO [facility] Last Admin: 07/27/17 21:23 Dose: 40 mg Sucralfate (Carafate Tab) 1 gm PO TID [facility] Last Admin: 07/28/17 09:17 Dose: 1 gm - Head Exam Head Exam: ATRAUMATIC, NORMAL INSPECTION, NORMOCEPHALIC - ENT Exam ENT Exam: Mucous Membranes Moist, Normal Exam - Respiratory Exam Respiratory Exam: Clear to Ausculation Bilateral, NORMAL BREATHING PATTERN - Cardiovascular Exam Cardiovascular Exam: REGULAR RHYTHM, +S1, +S2. absent: Murmur - Rectal Exam Rectal Exam: Deferred - Extremities Exam Extremities Exam: Full ROM, Normal Capillary Refill, Normal Inspection. absent : Joint Swelling, Pedal Edema - Back Exam Back Exam: NORMAL INSPECTION - Skin Skin Exam: Dry, Intact, Normal Color, Warm Assessment and Plan - Assessment and Plan (Free Text) Plan: Assessment and Plan (1) Bacteremia Status: Acute Rocephin 2 grams IVPB @ 1700 Vitals q shift PT/OT (2) UTI (urinary tract infection) Status: Acute Rocephin as above (3) HTN (hypertension) Status: Acute Continue Norvasc 2.5 mg po daily Well controlled at this time (4) Hypercholesterolemia Status: Chronic Continue Pravastatin 40 mg po HS (5) Hypothyroidism Status: Chronic Synthroid 88 mcg po daily - Assessment and Plan (Free Text) Plan: In TCU for total of 7 days of Rocephin 2 grams IVPB Amlodipine 2.5 mg po daily Aricept 10 mg po HS Lovenox 40 mg sc daily Synthroid 88 mcg po daily Pravastatin 40 mg po HS Rocephin 2 grams IVPB @ 1700 Carafate 1 gram po TID Heart healthy diet PT/OT
[2017-07-28] MEDS: cefTRIAXone 2 GM in Sodium Chloride 0.9% 100 ML IVPB SCH (16:43)
[2017-07-28] MEDS: Pravastatin Sodium 40 MG TAB PO SCH (21:13)
[2017-07-29] MEDS: Levothyroxine 88 MCG TAB PO SCH (06:36)
[2017-07-29] MEDS: Enoxaparin 40 mg Syringe SC SCH (09:17)
[2017-07-29] MEDS: cefTRIAXone 2 GM in Sodium Chloride 0.9% 100 ML IVPB SCH (17:02)
[2017-07-29] MEDS: Pravastatin Sodium 40 MG TAB PO SCH (21:19)
[2017-07-30] MEDS: Levothyroxine 88 MCG TAB PO SCH (06:57)
[2017-07-30] MEDS: Enoxaparin 40 mg Syringe SC SCH (08:02)
--- NOTE | 2017-07-30 15:37 | CP.PCM.PN ---
Subjective - Date & Time of Evaluation Date of Evaluation: 07/30/17 Time of Evaluation: 14:40 - Subjective Subjective: Pt seen and examined. Denied any complaint. Objective - Vital Signs/Intake and Output Vital Signs (last 24 hours): Temp Pulse Resp BP Pulse Ox 97.2 F L 70 20 122/62 98 07/30/17 08:01 07/30/17 08:02 07/30/17 08:01 07/30/17 08:02 07/30/17 08:01 - Medications Medications: Current Medications Amlodipine Besylate (Norvasc) 2.5 mg PO DAILY [facility] Last Admin: 07/30/17 08:02 Dose: 2.5 mg Donepezil HCl (Aricept) 10 mg PO [facility] Last Admin: 07/29/17 21:19 Dose: 10 mg Enoxaparin Sodium (Lovenox) 40 mg SC DAILY [facility] PRN Reason: Protocol Last Admin: 07/30/17 08:02 Dose: 40 mg Ceftriaxone Sodium 2 gm/ (Sodium Chloride) 100 mls @ 100 mls/hr IVPB DAILY@ 1700 [facility] Stop: 08/01/17 20:00 Last Admin: 07/29/17 17:02 Dose: 100 mls/hr Levothyroxine Sodium (Synthroid) 88 mcg PO DAILY@0630 [facility] Last Admin: 07/30/17 06:57 Dose: 88 mcg Pravastatin Sodium (Pravachol) 40 mg PO [facility] Last Admin: 07/29/17 21:19 Dose: 40 mg Sucralfate (Carafate Tab) 1 gm PO TID [facility] Last Admin: 07/30/17 12:28 Dose: 1 gm - Constitutional Appears: No Acute Distress - Head Exam Head Exam: ATRAUMATIC - Eye Exam Eye Exam: absent: Scleral icterus - ENT Exam ENT Exam: Mucous Membranes Moist - Neck Exam Neck Exam: absent: Meningismus - Respiratory Exam Respiratory Exam: absent: Rhonchi, Wheezes, Respiratory Distress - Cardiovascular Exam Cardiovascular Exam: REGULAR RHYTHM, +S1, +S2 - GI/Abdominal Exam GI & Abdominal Exam: Soft. absent: Tenderness - Rectal Exam Rectal Exam: Deferred - Neurological Exam Neurological Exam: Alert, Normal Gait - Psychiatric Exam Psychiatric exam: Depressed - Skin Skin Exam: Dry, Intact Assessment and Plan - Assessment and Plan (Free Text) Assessment: 82 [address] at [facility] on 07/22/17 because of UTI and bacteremia secondary to . She was transferred to TCU for continuation of IV antibiotics. (1) Bacteremia continue Rocephin 2 gm IV daily until 07/31/15 PT/OT (2) UTI (urinary tract infection) Rocephin as above (3) HTN (hypertension) Continue Norvasc 2.5 mg po daily Well controlled at this time (4) Hypercholesterolemia Continue Pravastatin 40 mg po HS (5) Hypothyroidism TSH: 3.2 Synthroid 88 mcg po daily
[2017-07-30] MEDS: cefTRIAXone 2 GM in Sodium Chloride 0.9% 100 ML IVPB SCH (17:17)
[2017-07-30] MEDS: Pravastatin Sodium 40 MG TAB PO SCH (21:59)
[2017-07-31] MEDS: Levothyroxine 88 MCG TAB PO SCH (05:50)
[2017-07-31] MEDS: Enoxaparin 40 mg Syringe SC SCH (08:15)
[2017-07-31] MEDS: cefTRIAXone 2 GM in Sodium Chloride 0.9% 100 ML IVPB SCH (17:18)
[2017-07-31] MEDS: Pravastatin Sodium 40 MG TAB PO SCH (21:25)
[2017-08-01] MEDS: Levothyroxine 88 MCG TAB PO SCH (06:34)
[2017-08-01 08:39] VITALS: PULSE 72; TEMP 97.9; O2SAT 100
[2017-08-01 08:50] VITALS: BP 119/72
--- NOTE | 2017-08-01 11:02 | CP.PCM.DIS ---
Provider - Provider Date of Admission: 07/25/17 14:36 Attending physician: Jose Enrique Britt MD Time Spent in preparation of Discharge (in minutes): 30 Diagnosis - Discharge Diagnosis (1) Abdominal pain Status: Acute Hospital Course - Hospital Course Hospital Course: 82 yo female admitted at [facility] on 07/22/17 because of bacteremia secondary to UTI. She was transferred to TCU for continuation of IV antibiotics. Pt successfully completed antibiotics and tolerated PT OT well. stable to be discharged home in good condition. Follow up wtih Dr Britt. (1) Bacteremia continue Rocephin 2 gm IV daily until 07/31/15 PT/OT (2) UTI (urinary tract infection) Rocephin as above (3) HTN (hypertension) Continue Norvasc 2.5 mg po daily Well controlled at this time (4) Hypercholesterolemia Continue Pravastatin 40 mg po HS (5) Hypothyroidism TSH: 3.2 Synthroid 88 mcg po daily Discharge Exam - Head Exam Head Exam: ATRAUMATIC, NORMOCEPHALIC - Eye Exam Eye Exam: EOMI, Normal appearance, PERRL Pupil Exam: NORMAL ACCOMODATION - ENT Exam ENT Exam: Mucous Membranes Moist, Normal Oropharynx - Respiratory Exam Respiratory Exam: Clear to PA & Lateral, NORMAL BREATHING PATTERN - Cardiovascular Exam Cardiovascular Exam: RRR, +S1, +S2 - GI/Abdominal Exam GI & Abdominal Exam: Normal Bowel Sounds, Soft. absent: Organomegaly, Tenderness - Back Exam Back exam: CVA tenderness (L), CVA tenderness (R) - Neurological Exam Neurological exam: Alert, Reflexes Normal - Psychiatric Exam Psychiatric exam: Normal Affect, Normal Mood - Skin Skin Exam: Dry, Warm Discharge Plan - Discharge Medications Prescriptions: amLODIPine [Norvasc] 2.5 mg PO DAILY #30 tab Donepezil [Aricept] 10 mg PO HS #30 tab Levothyroxine [Synthroid] 88 mcg PO DAILY@0630 #30 tab Pravastatin Sodium [Pravachol] 40 mg PO HS #30 tab Sucralfate [Carafate Tab] 1 gm PO TID #90 tab - Follow Up Plan Condition: GOOD Disposition: HOME/ ROUTINE Instructions: Urinary Tract Infection in Women (DC), Urinary Tract Infection in Men (DC), Dysuria (GEN) Additional Instructions: FOLLOW UP DR BRITT IN ONE WEEK RETURN TO ER IF CONDITION WORSENS
== END 2017-08-01 13:57 | disposition home or self-care (01) | DRG 321 ==
LOC: H.TCU 14:36
PROVIDERS: ADMIT Internal Medicine Pulmonary Disease; ATTEND Internal Medicine Pulmonary Disease
PROC: F08Z4FZ Home Management Treatment using Assistive, Adaptive, Supportive or Protective Equipment (ICD-10-PCS; principal; 2017-07-25)
PROC: F07M6FZ Therapeutic Exercise Treatment of Musculoskeletal System - Whole Body using Assistive, Adaptive, Supportive or Protective Equipment (ICD-10-PCS; 2017-07-25)
DX: N39.0 Urinary tract infection, site not specified (principal); G30.9 Alzheimer's disease, unspecified; F02.80 Dementia in other diseases classified elsewhere, unspecified severity, without behavioral disturbance, psychotic disturbance, mood disturbance, and anxiety; I10 Essential (primary) hypertension; E03.9 Hypothyroidism, unspecified; E78.00 Pure hypercholesterolemia, unspecified; E78.5 Hyperlipidemia, unspecified; G89.29 Other chronic pain; K21.9 Gastro-esophageal reflux disease without esophagitis; Z79.899 Other long term (current) drug therapy; Z87.440 Personal history of urinary (tract) infections; Z85.028 Personal history of other malignant neoplasm of stomach; K59.00 Constipation, unspecified; M54.9 Dorsalgia, unspecified; R10.11 Right upper quadrant pain; R10.12 Left upper quadrant pain